=== PATIENT | female | born 1965 | race Caucasian/White ===

== ENCOUNTER → 2019-11-19 15:14 | Outpatient (CLI) | payer SELFPAY ==
--- NOTE | 2019-11-19 15:26 | BI_ITS ---
MAMMOGRAPHY - BILATERAL SCREENING REASON FOR EXAM: Female, 54 years old. Routine annual screening examination. PERTINENT HISTORY: Non-contributory. TECHNIQUE: Digital bilateral breast dominique (3D mammographic acquisition) in the CC and MLO projections. 2-D mediolateral oblique (MLO) and craniocaudad (CC) views of both breasts were obtained. CAD: Full Field Digital Mammography with Computer Added Detection was performed. COMPARISON: No comparison mammograms available at this time. If any prior films become available, an addendum to this report can be generated. FINDINGS: Breast Composition: The breasts are heterogeneously dense, which may obscure small masses. There are no dominant masses or suspicious calcifications. Small benign appearing bilateral axillary nodes. No other significant abnormalities are identified. BI/SCREEN MAMM (CAD) W/DOMINIQUE BILAT IMPRESSION: Negative screening mammogram. Yearly followup mammogram recommended. (A) ASSESSMENT CATEGORY: BIRADS Category 2: Benign. A letter regarding these results will be sent to the patient by the facility within 30 days. Approximately 10% of breast cancers are not detected by mammography. A normal mammogram should not delay biopsy of a clinically suspicious abnormality. [id number] Electronically Signed: Bird Wong, at 12:48 EDT , Service support ,
== END ==
PROVIDERS: PCP Physician Assistant; Referring Provider Physician Assistant; Visit Provider Physician Assistant
DX: Z12.31 Encounter for screening mammogram for malignant neoplasm of breast (principal)
CPT/HCPCS: 77063; 77067

== ENCOUNTER → 2023-08-14 | Outpatient (CLI) | payer SELFPAY ==
--- NOTE | 2023-08-14 10:23 | RAD_ITS ---
STUDY: X-RAY - PELVIS REASON FOR EXAM: Female, 58 years old. Pain. TECHNIQUE: One view of the pelvis was obtained. COMPARISON: None. FINDINGS: Normal bowel gas pattern with air seen to the rectosigmoid. Phleboliths Normal bilateral iliac wings, sacroiliac joints and visualized sacrum. Normal visualized bilateral superior and inferior pubic rami. Normal pubic symphysis. Normal ischial tuberosities. Normal visualized right femoral head. Normal right acetabulum. Normal right hip joint. Normal visualized left femoral head. Normal left acetabulum. Normal left hip joint. RAD/Pelvis 1 or 2 Views IMPRESSION: No abnormality identified. Electronically Signed: Igor Neff MD at 11:00 EDT ,
[2023-08-14 12:10] LABS: Absolute Lymphocyte Count 1.68 X10^3/uL (0.83-4.51); Absolute Neutrophil Count 4.7 X10^3/uL (2.0-7.7); Basophil# 0.02 X10^3/uL; Basophil% 0.3 % (0-1); Eosinophil# 0.13 X10^3/uL; Eosinophils% 1.8 % (0-5); Hemoglobin 13.7 g/dL (12.0-15.0); Lymphocyte # 1.68 X10^3/ul (0.83-4.51); Lymphocyte % 23.9 % (19-41); Mean Corp Hgb Conc 32.6 g/dL (32-36); Mean Corpuscular Hgb 29.7 pg (27.0-32.0); Mean Corpuscular Volume 91.1 fL (81-99); Mean Platelet Vol. 10.2 fl (6.2-12.0); Monocyte# 0.48 X10^3/uL; Monocyte% 6.8 % (0-10); NRBC Flagged by Analyzer 0 % (0-5); Neutrophil % 66.8 % (47-70); Platelet Count 281 K/mm3 (150-450); RBC Distribution Width CV 14.1 % (11.6-14.6); RBC Distribution Width SD 45.9 fl (35.1-43.9); Red Blood Count 4.61 M/mm3 (4.2-5.4)
[2023-08-14 12:17] LABS: Erythrocyte Sedimentation Rate 12 mm/hr (0-30)
[2023-08-14 12:34] LABS: AST(SGOT) 19 U/L (15-37); Alanine Aminotransfer ALT/SGPT 26 U/L (13-56); Albumin, Serum 3.9 g/dL (3.2-5.0); Alkaline Phosphatase 97 U/L (45-117); Anion Gap 10 (5-15); BUN 20 mg/dL (7-18); BUN/Creat Ratio 19.2 RATIO (10-20); CRP < 2.90 mg/L (0.0-3.0); Calcium,Total 9.2 mg/dL (8.5-10.1); Chloride 106 mmol/L (98-107); Creatinine, Serum 1.04 mg/dL (0.55-1.02); EST Glomerular Filtration Rate 58 mL/min (>60); Est Glom Filt Rate - Afr Amer 70 mL/min (>60); Glucose 104 mg/dL (74-106); Potassium 3.4 mmol/L (3.5-5.1); Protein, Total 7.9 g/dL (6.4-8.2); Rheumatoid Factor < 10.0 IU/mL (<15); Sodium Level 139 mmol/L (136-145)
[2023-08-15 15:09] LABS: CCP IgG Antibodies 11 units (0-19)
[2023-08-15 16:10] LABS: ANTINUCLEAR ANTIBODIES DIRECT Negative (Negative)
[2023-08-16 16:14] LABS: Hepatitis B Surface Antibody Non-Reactive; Hepatitis B Surface Antigen Non-Reactive (Nonreactive); Hepatitis C Antibody Non-Reactive (Nonreactive)
== END | disposition home or self-care (01) ==
PROVIDERS: PCP Physician Assistant; Referring Provider Internal Medicine Rheumatology; Visit Provider Internal Medicine Rheumatology
DX: L40.59 Other psoriatic arthropathy (principal); Z79.899 Other long term (current) drug therapy; L40.8 Other psoriasis
CPT/HCPCS: 36415; 72170; 80053; 85025; 85652; 86038; 86140; 86200; 86431; 86706; 86803; 87340

== ENCOUNTER → 2024-06-25 | Outpatient (CLI) | payer SELFPAY ==
[2024-06-25 15:29] LABS: Absolute Lymphocyte Count 1.88 X10^3/uL (0.83-4.51); Absolute Neutrophil Count 4.4 X10^3/uL (2.0-7.7); Basophil# 0.02 X10^3/uL; Basophil% 0.3 % (0-1); Eosinophil# 0.11 X10^3/uL; Eosinophils% 1.6 % (0-5); Hematocrit 39.3 % (37-47); Lymphocyte # 1.88 X10^3/ul (0.83-4.51); Lymphocyte % 26.9 % (19-41); Mean Corp Hgb Conc 33.1 g/dL (32-36); Mean Corpuscular Hgb 29.7 pg (27.0-32.0); Mean Corpuscular Volume 89.7 fL (81-99); Mean Platelet Vol. 10.1 fl (6.2-12.0); Monocyte% 8.6 % (0-10); NRBC Flagged by Analyzer 0 % (0-5); Neutrophil # 4.37 X10^3/uL (2.7-7.7); Neutrophil % 62.3 % (47-70); Platelet Count 281 K/mm3 (150-450); RBC Distribution Width CV 13.5 % (11.6-14.6); RBC Distribution Width SD 43.9 fl (35.1-43.9); Red Blood Count 4.38 M/mm3 (4.2-5.4)
[2024-06-25 16:50] LABS: ALB/GLOB Ratio 1.4 RATIO (0.9-2.4); AST(SGOT) 26 U/L (<=31); Alanine Aminotransfer ALT/SGPT 34 U/L (<=34); Albumin, Serum 4.3 g/dL (3.5-5.0); Alkaline Phosphatase 92 U/L (35-104); Anion Gap 12 (5-15); BUN 17 mg/dL (4-19); BUN/Creat Ratio 17.7 RATIO (10-20); Calcium,Total 9.7 mg/dL (7.6-11.0); Chloride 105 mmol/L (98-108); Creatinine, Serum 0.98 mg/dL (0.70-1.20); EST Glomerular Filtration Rate 67 (>60); Globulin 3.1 g/dL (2.2-4.2); Glucose 91 mg/dL (70-99); Potassium 3.8 mmol/L (3.3-5.1); Protein, Total 7.4 g/dL (5.9-8.4); Sodium Level 137 mmol/L (133-145); Total Bilirubin 0.34 mg/dL (0.00-1.30)
== END | disposition home or self-care (01) ==
LOC: MTLAB 13:06
PROVIDERS: PCP Physician Assistant; Referring Provider Internal Medicine Rheumatology; Visit Provider Internal Medicine Rheumatology
DX: L40.59 Other psoriatic arthropathy (principal); L40.8 Other psoriasis; Z79.899 Other long term (current) drug therapy
CPT/HCPCS: 36415; 80053; 85025

== ENCOUNTER → 2024-09-24 | Outpatient (CLI) | payer SELFPAY ==
--- NOTE | 2024-09-24 09:36 | US_ITS ---
PROCEDURE: LIVER 09/24/2024 REASON FOR EXAM: [employer] DRUG TX/OTHER PSORIATIC ARTHROPATHY/ELEVATED LI ENZYMES COMPARISON: None FINDINGS: Liver: Diffusely echogenic suggesting fatty infiltration. The liver measures 16.7 cm. Gallbladder: No stones sludge wall thickening or tenderness. Common bile duct: Normal measuring 2.7 mm . Pancreas: Normal Other: Visualized portions of the right kidney are unremarkable. 2 small cysts are seen. The largest cyst measures 1.3 cm 1.4 cm 1 cm. This is in the superior pole. No right upper quadrant ascites. US/Liver IMPRESSION: Fatty infiltration of the liver. Right renal cysts. Reading Location: [facility]
--- OUTSIDE RECORDS SUMMARY | 2024-09-24 11:18 | XMS RPT_ITS | CCD ---
Author Organization [facility] Care Team Providers Care Director Of Athletics Name Role Phone NONE, XXXX Primary Care Physician Unavailab Derrick Andrade Attending Unavailable Derrick Hudson Admitting Unavailable NONE, XXXX Referring Unavailable Basil Gibson Primary Care Provider Basil Gibson Primary Care Provider IRVING VALDEZ JR. Attending Unavaila BASIL Carias Primary Care Unavailable SELF, SELF Referring Unavailable SELF, SELF Referring Unavailable IRVING VALDEZ JR. Attending Unavaila BASIL Carias Primary Care Unavailable IRVING VALDEZ JR. Attending Unavaila BASIL Carias Primary Care Unavailable SELF, SELF Referring Unavailable IRVING VALDEZ JR. Attending Unavaila BASIL Carias Primary Care Unavailable SELF, SELF Referring Unavailable BRITTNEY VILLA Referring Unavailable BASIL CALDERÓN Primary Care Unavaila SHAMA Perry Attending Unavaila pebbles Calderón PA-C, Basil Nazario Primary Care Provid er JOHNNIE JOHNS Referring BRITTNEY Shin Referring Unavailable Cyndy BECK, Dr. Vicente Primary Care Provider [phone] Dr. Belén Almaraz MD Attending Provider Dr. Belén Almaraz MD Referring Provider SHAMA MCCANN Referring Unavaila BASIL Carias Primary Care Unavaila FAB Underwood Attending Unavaila SHAMA Perry Admitting Unavaila BASIL Carias Primary Care Unavaila ble LUANN JOSHI Attending Unavailable FAB GARCIA Admitting Unavaila FAB Underwood Referring Unavaila BASIL Carias [facility] Care Unavaila KIA Odonnell Attending Unavailable LUANN JOSHI Referring Unavailable BASIL CALDERÓN [facility] Unavaila LUANN Pederson Attending Unavailable BASIL CALDERÓN [facility] Unavaila LUANN Pederson Attending Unavailable BASIL CALDERÓN [facility] Unavaila LUANN Pederson Attending Unavailable Basil Calderón Primary Care Unavailable Vellanki, Belén Referring Unavailable Vellanki, Belén Attending Unavailable Vellauren, Belén Attending Unavailable Basil Calderón Primary Care Unavailable Vellanki, Belén Referring Unavailable Allergies Allergy Classification Reported Allergen(s) Allergy Type Date of Onset Reaction(s) Facility (1 source) Sulfonamides (Antibiotic); Translations: [sulfa drugs] Drug allergy Pain (finding) [facility] (3 sources) Sulfonamides (Antibiotic) Propensity to adverse reactions to drug 2 [facility] (6 sources) Sulfonamides (Antibiotic); Translations: [SULFA (SULFONAMIDE ANTIBIOTICS)] Propensity to adverse reactions to drug (disorder) 4 GI Intolerance [facility] Repository Medications Current Medications Medication Drug Class(es) Dates Sig (Normalized) Sig (Original) biotin 1 mg oral tablet (3 sources) biotin 1 mg tabl et Take 1,000 mcg by mouth 2 (two) times a day . 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 11/28/2021 Active leucovorin 15 mg oral tablet (4 sources) Folate Analog Start: 4 take 1 tablet by mouth every week leucovorin (WELLCOVORIN) 15 MG tablet Take 1 (one) tablet (15 mg total) by mouth once a week . 01/07/2024 Active lisinopril 20 mg oral tablet (4 sources) Angiotensin Converting Enzyme Inhibitor Start: 4 take 1 tablet by mouth once daily lisinopriL (PRINIVIL,ZESTRIL) 20 MG tablet Take 1 (one) tablet (20 mg total) by mouth daily . 11/04/2023 Active megestrol acetate 40 mg oral tablet (8 sources) Progestin Start: End: 5 take 1 tablet by mouth twice daily megestroL (MEGACE) 40 MG tablet Take 1 (one) tablet (40 mg total) by mouth 2 (two) times a day . 02/13/2023 Active Start: 11-03-2021 take 2 tablets by mo uth once daily megestrol 40 MG tablet Take 2 tablets by mouth daily. 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 , Methotrexate, exterminator, current use , 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 cancer , History of psoriatic arthritis , Family history of psoriatic arthritis , Family history of psoriasis , Hyperchloremia 7 po one day a week 28 tablet 5 05/14/2023 Active Start: 11-13-2022 End: 05-14-2023 take 6 tablets by mouth once for arthritis methotrexate 2.5 MG tablet Indications: Psoriatic arthritis , Abnormal renal function test , Encounter for monitoring of etanercept therapy , Family history of psoriasis , Family history of psoriatic arthritis , History of psoriatic arthritis , 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 cancer , 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 non-steroidal anti-inflammatories (NSAID) , Methotrexate, exterminator, current use , 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 , Primary osteoarthritis of both hands 6 po one day a week 24 tablet 5 11/13/2022 05/14/2023 Discontinued Start: 07-26-2022 End: 11-13-2022 take 3 tablets by mouth once methotrexate 2.5 MG table t Indications: Psoriatic arthritis , Abnormal renal function test , Family history of psoriasis , Family history of psoriatic arthritis , History of psoriatic arthritis , 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 cancer , 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) , Methotrexate, detention, current use , Hyperglycemia , 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 , Primary osteoarthritis of both hands 3 po one day a week 36 tablet 3 07/26/2022 11/13/2022 Discontinued Start: 12-21-2021 End: 05-15-2022 take 3 tablets by mouth once methotrexate 2.5 MG table t Indications: Psoriatic arthritis , Abnormal renal function test , Family history of psoriasis , Family history of psoriatic arthritis , History of psoriatic arthritis , 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 cancer , 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) , Methotrexate, detention, current use , Hyperglycemia , 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 , Methotrexate, detention, current use , 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 cancer , History of psoriatic arthritis , Family history of psoriatic arthritis , Family history of psoriasis , Hyperchloremia One shot day 1 then 4 weeks later than every 12 weeks thereafter 1 mL 11 05/14/2023 Active Start: 05-14-2023 End: 05-14-2023 Risankizumab-rzaa (Skyrizi P en) 150 MG/ML Solution Auto- injector Indications: Psoriatic arthritis , Primary osteoarthritis of both hands , 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 , Methotrexate, detention, current use , 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 cancer , History of psoriatic arthritis , Family history of psoriatic arthritis , Family history of psoriasis , Hyperchloremia One shot day 1 then 4 weeks later than every 12 weeks thereafter 1 mL 11 05/14/2023 05/14/2023 Discontinued Completed/Discontinued Medications Medication Drug Class(es) Dates Sig (Normalized) Sig (Original) 1 ml etanercept 50 mg/ml cartridge (3 sources) Tumor Necrosis Factor Xochilt Start: 11-13-2022 End: 05-14-2023 Etanercept (Enbrel Mini) 50 MG/ML Solution Cartridge Indications: Psoriatic arthritis , Abnormal renal function test , Encounter for monitoring of etanercept therapy , Family history of psoriasis , Family history of psoriatic arthritis , History of psoriatic arthritis , 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 cancer , 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 non-steroidal anti-inflammatories (NSAID) , Methotrexate, detention, current use , 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 , Primary osteoarthritis of both hands One shot one day a week 4 mL 11 11/13/2022 05/14/2023 Discontinued meloxicam 7.5 mg oral tablet (4 sources) Nonsteroidal Anti-inflammatory Drug Start: 05-15-2022 End: 05-14-2023 take 1 tablet by mouth once daily as needed Meloxicam 7.5 MG tablet Indications: Psoriatic arthritis , Abnormal renal function test , Family history of psoriasis , Family history of psoriatic arthritis , History of psoriatic arthritis , 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 cancer , 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 non-steroidal anti-inflammatories (NSAID) , Methotrexate, detention, current use , Hyperglycemia , 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 , Primary osteoarthritis of both hands 1 po q day PRN 90 tablet 3 05/15/2022 05/14/2023 Discontinued Start: 05-03-2022 End: 05-15-2022 take 1 tablet by mouth every other day as needed Meloxicam 15 MG tablet Indications: Psoriatic arthritis 1 po every other day PRN 15 tablet 11 05/03/2022 05/15/2022 Discontinued Problems Active Problems Problem Classification Problem Date Documented Date Episodic/Chronic Cancer of uterus (8 sources) H/O: malignant neoplasm; Translations: [Personal history of malignant neoplasm of other parts of uterus] Onset: 12-21-2021 Episodic Essential hypertension (4 sources) Hypertensive disorder; Translations: [Essential (primary) hypertension] Onset: 12-21-2021 11-23-2021 Chronic Fluid and electrolyte disorders (4 sources) Other disorders of electrolyte and fluid balance, not elsewhere classified; Translations: [Hyperchloremia] Onset: 05-14-2023 Episodic Osteoarthritis (10 sources) Osteoarthritis of joint of bilateral hands; Translations: [Primary osteoarthritis, right hand] Onset: 12-21-2021 Chronic Other aftercare (6 sources) shelter methotrexate user; Translations: [Methotrexate, detention, current use] Onset: 12-21-2021 Episodic Other aftercare (1 source) Other detention (current) drug therapy; Translations: [Other detention (current) drug therapy] Onset: 09-19-2024 Episodic Other ear and sense organ disorders (2 sources) Abnormal auditory perception; Translations: [Other abnormal auditory perceptions, right ear] 05-12-2024 Episodic Other inflammatory condition of skin (6 sources) Psoriatic arthritis; Translations: [Arthropathic psoriasis, unspecified] Onset: 12-21-2021 Chronic Other inflammatory condition of skin (2 sources) Arthropathic psoriasis, unspecified; Translations: [Arthropathic psoriasis, unspecified] Onset: 12-21-2021 Chronic Other inflammatory condition of skin (2 sources) Other psoriatic arthropathy; Translations: [Other psoriatic arthropathy] Onset: 07-01-2024 Chronic Other nutritional; endocrine; and metabolic disorders (3 sources) Obese class II; Translations: [Obesity, unspecified] Onset: 12-21-2021 12-21-2021 Chronic Other skin disorders (6 sources) H/O: arthritis; Translations: [Personal history of diseases of the skin and subcutaneous tissue] Onset: 12-21-2021 Episodic Residual codes; unclassified (6 sources) FH: Psoriasis; Translations: [Family history of diseases of the skin and subcutaneous tissue] Onset: 12-21-2021 Episodic Residual codes; unclassified (6 sources) Family history of psoriasis with arthropathy; Translations: [Family history of diseases of the skin and subcutaneous tissue] Onset: 12-21-2021 Episodic Spondylosis; intervertebral disc disorders; other back problems (8 sources) Dactylitis; Translations: [Unspecified inflammatory spondylopathy, site unspecified] Onset: 12-21-2021 Chronic Unclassified (1 source) shelter (current) use of immunosuppressive biologic; Translations: [shelter (current) use of immunosuppressive biologic] Onset: 11-13-2022 Unclassified (1 source) lobsterman (current) use of antimetabolite agent; Translations: [shelter (current) use of antimetabolite agent] Onset: 12-21-2021 Past or Other Problems Problem Classification Problem Date Documented Date Episodic/Chronic Conditions associated with dizziness or vertigo (20 sources) Benign paroxysmal vertigo, unspecified ear; Translations: [Peripheral vertigo] Onset: 4 Episodic Diabetes mellitus without complication (6 sources) Hyperglycemia; Translations: [Hyperglycemia, unspecified] Onset: 3 Resolved: 4 Episodic Malaise and fatigue (3 sources) Fatigue; Translations: [Other fatigue] Onset: 2 12-21-2021 Episodic Other aftercare (8 sources) Patient encounter status; Translations: [shelter (current) use of non-steroidal anti-inflammatories (NSAID)] Onset: 2 Resolved: 4 Episodic Other aftercare (3 sources) Long-term current use of systemic steroid; Translations: [lobsterman (current) use of systemic steroids] Onset: 2 Resolved: 2 12-21-2021 Episodic Other aftercare (2 sources) Encounter for therapeutic drug level monitoring; Translations: [Encounter for therapeutic drug level monitoring] Onset: 3 Episodic Other aftercare (2 sources) shelter (current) use of non-steroidal anti-inflammatories (NSAID); Translations: [lobsterman (current) use of non-steroidal anti-inflammatories (nsaid)] Onset: 2 Episodic Other bone disease and musculoskeletal deformities (3 sources) Disorder of skeletal system; Translations: [Disorder of bone, unspecified] Onset: 2 12-21-2021 Episodic Other connective tissue disease (3 sources) Pain of bilateral hands; Translations: [Pain in right hand] Onset: 2 12-21-2021 Episodic Other ear and sense organ disorders (2 sources) Other abnormal auditory perceptions, right ear; Translations: [Other abnormal auditory perceptions, right ear] Onset: 5 Episodic Other non-traumatic joint disorders (3 sources) Bilateral wrist pain; Translations: [Pain in right wrist] Onset: 2 12-21-2021 Episodic Other screening for suspected conditions (not mental disorders or infectious disease) (7 sources) Renal function tests abnormal; Translations: [Abnormal results of kidney function studies] Onset: 3 Resolved: 4 Episodic Other skin disorders (2 sources) Personal history of diseases of the skin and subcutaneous tissue; Translations: [Personal history of diseases of the skin and subcutaneous tissue] Onset: 2 Episodic Residual codes; unclassified (2 sources) Family history of diseases of the skin and subcutaneous tissue; Translations: [Family history of diseases of the skin and subcutaneous tissue] Onset: 2 Episodic Unclassified (1 source) lobsterman (current) use of immunosuppressive biologic; Translations: [shelter (current) use of immunosuppressive biologic] Onset: 3 Unclassified (1 source) lobsterman (current) use of antimetabolite agent; Translations: [lobsterman (current) use of antimetabolite agent] Onset: 3 Results Test Name Value Interpretation Reference Range Facility CT ABDOMEN PELVIS W IV CONTR [place] 06-27-2024 CT ABDOMEN PELVIS W IV CONTRAST HISTORY: History of endometrial sarcoma. Positive lymphovascular space invasion. History of hysterectomy. TECHNIQUE: CT of the abdomen and pelvis was performed using standard technique with intravenous contrast, scanning from just above the dome of the diaphragm to the symphysis pubis. Including delayed images through the kidneys. Including sagittal and coronal reconstructions on both phases. All CT scans at this facility use dose modulation, iterative reconstruction, and/or weight based dosing when appropriate to reduce radiation dose to as low as reasonably achievable. COMPARISON: CTs 05/17/2023. RESULT: Liver: Diffuse hepatic steatosis. No suspicious mass or lesion. Biliary: Gallbladder unremarkable. No biliary ductal dilation. Pancreas: No mass or duct dilation. Spleen: No mass or splenomegaly. Adrenals: No mass. Kidneys: No mass, calculus or hydronephrosis. Delayed phase imaging unremarkable. GI tract: No dilation or wall thickening. Appendix unremarkable. Diverticulosis without diverticulitis. Lymph nodes: No abdominal or pelvic lymphadenopathy. Mesentery/Peritoneu m/Retroperitoneum: No ascites or mass. Vasculature: The celiac axis and SMA are patent. The portal vein and branches, splenic vein, SMV, and hepatic veins are patent. No abdominal aortic or iliac artery aneurysm. Pelvis: Hysterectomy. Hysterectomy surgical bed grossly unchanged from prior. No significant free fluid. Bladder unremarkable. Bones: No acute osseous findings. No destructive osseous lesions. Soft tissues: Diastases, unchanged. Lower thorax: A chest CT performed will be reported separately. IMPRESSION: No acute process in the abdomen/pelvis. No significant interval change from prior. ELECTRONICALLY SIGNED BY: Aleks Damon MD Normal Not Available CT CHEST W IV CONTRASTon CT CHEST W IV CONTRAST EXAMINATION: CT CHEST W IV CONTRAST HISTORY: History of endometrial cancer. TECHNIQUE: Spiral CT acquisition of the chest from the thoracic inlet to the upper abdomen with contrast. Dedicated sagittal and coronal reconstructions. All CT scans at this facility use dose modulation, iterative reconstruction, and/or weight based dosing when appropriate to reduce radiation dose to as low as reasonably achievable. COMPARISON: 05/17/2023. RESULT: Lung parenchyma and pleura: Some limitations from motion. Central airways grossly patent. Dependent atelectasis. No consolidative opacity. No pleural effusion. No pneumothorax. No suspicious lung nodules. Thoracic inlet, heart, and mediastinum: Thyroid cysts and/or nodules, grossly unchanged, not requiring follow-up per size criteria. No axillary, mediastinal, or hilar lymphadenopathy. Normal thoracic aorta. Normal pulmonary size artery. Normal heart size. No coronary artery calcifications. No pericardial effusion or thickening. Esophagus nondilated. Bones: No acute osseous findings. No destructive osseous lesions. Soft tissues: Unremarkable. Upper abdomen: Refer to concurrent CT. IMPRESSION: No evidence for metastatic disease to the thorax. ELECTRONICALLY SIGNED BY: Aleks Damon MD Normal Not Available Absolute lymphocyte countOrd ered By: Belén Almaraz on 06-25-2024 Lymphocytes Auto (Unsp spec) [#/Vol] 1.88 10*3/uL 0.83-4.51 [facility] Absolute neutrophil countOrd ered By: Belén Almaraz on 06-25-2024 Neutrophils (Bld) [#/Vol] 4.4 10*3/uL 2.0-7.7 [facility] Anion gap in Serum or Plasma Ordered By: Belén Almaraz on 06-25-2024 Anion gap [Moles/Vol] 12 mmol/L 5-15 [facility] Automated lymphocyte count a s percentage of total leukocytesOrdered By: Belén Almaraz on 06-25-2024 Lymphocytes/100 WBC Auto (Unsp spec) 26.9 % 19-41 [facility] BUN/creatinine ratioOrdered By: Belénsaumya Almaraz on 06-25-2024 Urea nitrogen/Creatinine [Mass ratio] 17.7 mg/mg 10-20 [facility] Basophil percentageOrdered B y: Belén Almaraz on 06-25-2024 Basophils/100 WBC (Bld) 0.3 % 0-[address] [facility] Bilirubin, totalOrdered By: Belén Almaraz on 06-25-2024 Bilirubin [Mass/Vol] 0.34 mg/dL 0.00-1.30 [facility] CBC W/Diff, Automatedon 06-12 Absolute Lymph 1.88 X10 3/uL Normal 0.83-4.51 [facility] Comment on above: Performed By: #### L [id number], L100.0100 #### [facility] [address] [place], [address] Absolute Neut 4.4 X10 3/uL Normal 2.0-7.7 [facility] Comment on above: Performed By: #### L [id number], L100.0100 #### [facility] [address] [place], [address] Basophils/100 WBC (Bld) 0.3 % Normal 0-[address] [facility] Comment on above: Performed By: #### L [id number], L100.0100 #### [facility] [address] [place], [address] Eosinophils/100 WBC (Bld) 1.6 % Normal 0-5 [facility] Comment on above: Performed By: #### L [id number], L100.0100 #### [facility] [address] [place], [address] Erythrocyte distribution width (RBC) [Ratio] 13.5 % Normal 11.6-14.6 [facility] Comment on above: Performed By: #### L [id number], L100.0100 #### [facility] [address] [place], [address] Hematocrit (Bld) [Volume fraction] 39.3 % Normal 37-47 [facility] Comment on above: Performed By: #### L [id number], L100.0100 #### [facility] [address] [place], [address] Hemoglobin (Bld) [Mass/Vol] 13.0 g/dL Normal 12.0-15.0 [facility] Comment on above: Performed By: #### L [id number], L100.0100 #### [facility] [address] [place], [address] IG% 0.300 Normal 0.0-0.9 [facility] Comment on above: Result Comment: IG% - Immature Granulocytes (promyelocytes, myelocytes and metamyelocytes) > 1% indicates that a LEFT SHIFT is Present. Performed By: #### L [id number], L100.0100 #### [facility] [address] [place], [address] Lymphocytes/100 WBC (Bld) 26.9 % Normal 19-41 [facility] Comment on above: Performed By: #### L 500.4050, L100.0100 #### [facility] [address] [place], [address] MCH (RBC) [Entitic mass] 29.7 pg Normal 27.0-32.0 [facility] Comment on above: Performed By: #### L [id number], L100.0100 #### [facility] [address] [place], [address] MCHC (RBC) [Mass/Vol] 33.1 g/dL Normal 32-36 [facility] Comment on above: Performed By: #### L [id number], L100.0100 #### [facility] [address] [place], [address] MCV (RBC) [Entitic vol] 89.7 fL Normal 81-[address] [facility] Comment on above: Performed By: #### L [id number], L100.0100 #### [facility] [address] [place], [address] Monocytes/100 WBC (Bld) 8.6 % Normal 0-10 [facility] Comment on above: Performed By: #### L [id number], L100.0100 #### [facility] [address] [place], [address] Neutrophils/100 WBC (Bld) 62.3 % Normal 47-70 [facility] Comment on above: Performed By: #### L [id number], L100.0100 #### [facility] [address] [place], [address] Nucleated RBC (Bld) [#/Vol] 0 10*3/uL Normal 0-5 [facility] Comment on above: Performed By: #### L [id number], L100.0100 #### [facility] [address] [place], [address] Platelet mean volume (Bld) [Entitic vol] 10.1 fL Normal 6.2-12.0 [facility] Comment on above: Performed By: #### L 500.4050, L100.0100 #### [facility] [address] [place], [address] Platelets (Bld) [#/Vol] 281 10*3/uL Normal 150-450 [facility] Comment on above: Performed By: #### L 500.4050, L100.0100 #### [facility] [address] [place], [address] RBC (Bld) [#/Vol] 4.38 10*6/uL Normal 4.2-5.4 [facility] Comment on above: Performed By: #### L [id number], L100.0100 #### [facility] [address] [place], [address] RDW SD 43.9 fl Normal 35.1-43.9 [facility] Comment on above: Performed By: #### L 500.4050, L100.0100 #### [facility] [address] [place], [address] WBC (Bld) [#/Vol] 7.0 10*3/uL Normal 4.4-11.0 [facility] Comment on above: Performed By: #### L 500.4050, L100.0100 #### [facility] [address] [place], [address] Carbon dioxide, total [Moles /volume] in Central venous bloodOrdered By: Belén Almaraz on 06-25-2024 CO2 [Moles/Vol] 20.0 mmol/L Low 21.0-32.0 [facility] Chloride assayOrdered By: Abraham Almaraz on 06-25-2024 Chloride [Moles/Vol] 105 mmol/L 98-108 [facility] [facility] Comprehensive Metabolic Prof ilon 06-25-2024 Albumin [Mass/Vol] 4.3 g/dL Normal 3.5-5.0 [facility] Comment on above: Performed By: #### L 500.4050, L100.0100 #### [facility] [address] [place], [address] Albumin/Globulin [Mass ratio] 1.4 {ratio} Normal 0.9-2.4 [facility] Comment on above: Performed By: #### L 500.4050, L100.0100 #### [facility] [address] [place], [address] ALK PHOS 92 U/L Normal 35-104 [facility] Comment on above: Performed By: #### L 500.4050, L100.0100 #### [facility] [address] [place], [address] ALT [Catalytic activity/Vol] 34 U/L Normal <=34 [facility] Comment on above: Performed By: #### L 500.4050, L100.0100 #### [facility] [address] [place], [address] AST [Catalytic activity/Vol] 26 U/L Normal <=31 [facility] Comment on above: Performed By: #### L 500.4050, L100.0100 #### [facility] [address] [place], [address] Bilirubin [Mass/Vol] 0.34 mg/dL Normal 0.00-1.30 [facility] Comment on above: Performed By: #### L 500.4050, L100.0100 #### [facility] [address] [place], [address] BUN/CRE 17.7 RATIO Normal 10-20 [facility] Comment on above: Performed By: #### L 500.4050, L100.0100 #### [facility] [address] [place], [address] Calcium [Mass/Vol] 9.7 mg/dL Normal 7.6-11.0 [facility] Comment on above: Performed By: #### L 500.4050, L100.0100 #### [facility] [address] [place], [address] Chloride [Moles/Vol] 105 mmol/L Normal 98-108 [facility] Comment on above: Performed By: #### L 500.4050, L100.0100 #### [facility] [address] [place], [address] CO2 [Moles/Vol] 20.0 mmol/L Low 21.0-32.0 [facility] Comment on above: Performed By: #### L 500.4050, L100.0100 #### [facility] [address] [place], [address] Creatinine [Mass/Vol] 0.98 mg/dL Normal 0.70-1.20 [facility] Comment on above: Performed By: #### L 500.4050, L100.0100 #### [facility] [address] [place], [address] GAP 12 Normal 5-15 [facility] Comment on above: Performed By: #### L 500.4050, L100.0100 #### [facility] [address] [place], [address] GFR/1.73 sq M.predicted among non-blacks MDRD (S/P/Bld) [Vol rate/Area] 67 mL/min/{1.73_m2} Normal >60 [facility] Comment on above: Result Comment: mL/m in/1.73m2 CKD-EPI Creatinine Equation (2020) Performed By: #### L 500.4050, L100.0100 #### [facility] [address] [place], [address] Globulin (S) [Mass/Vol] 3.1 g/dL Normal 2.2-4.2 [facility] Comment on above: Performed By: #### L 500.4050, L100.0100 #### [facility] [address] [place], [address] Glucose [Mass/Vol] 91 mg/dL Normal 70-99 [facility] Comment on above: Performed By: #### L 500.4050, L100.0100 #### [facility] [address] [place], [address] Potassium [Moles/Vol] 3.8 mmol/L Normal 3.3-5.1 [facility] Comment on above: Performed By: #### L 500.4050, L100.0100 #### [facility] [address] [place], [address] Sodium [Moles/Vol] 137 mmol/L Normal 133-145 [facility] Comment on above: Performed By: #### L 500.4050, L100.0100 #### [facility] [address] [place], [address] T PROT 7.4 g/dL Normal 5.9-8.4 [facility] Comment on above: Performed By: #### L 500.4050, L100.0100 #### [facility] [address] [place], [address] Urea nitrogen [Mass/Vol] 17 mg/dL Normal 4-19 [facility] Comment on above: Performed By: #### L 500.4050, L100.0100 #### [facility] [address] [place], [address] Eosinophil percentageOrdered By: Belén Almaraz on 06-25-2024 Eosinophils/100 WBC (Bld) 1.6 % 0-5 [facility] Erythrocyte distribution wid th ratioOrdered By: Belén Almaraz on 06-25-2024 Erythrocyte distribution width (RBC) [Ratio] 13.5 % 11.6-14.6 [facility] Erythrocyte distribution wid th standard deviationOrdered By: Belén Almaraz on 06-25-2024 Erythrocyte distribution width (RBC) [Ratio] 43.9 fl 35.1-43.9 [facility] Glomerular filtration rate ( GFR) estimation/1.73 sq m using serum, plasma, or whole bOrdered By: Belén Almaraz on 06-25-2024 GFR/1.73 sq M.predicted among non-blacks MDRD (S/P/Bld) [Vol rate/Area] 67 mL/min/{1.73_m2} >60 [facility] Comment on above: mL/min/1.73m2 CKD-EP I Creatinine Equation (2020) Hematocrit Auto (Bld) [Volum e fraction]Ordered By: Belén Almaraz on 06-25-2024 Hematocrit (Bld) [Volume fraction] 39.3 % 37-47 [facility] Hemoglobin measurementOrdere d By: Belén Almaraz on 06-25-2024 Hemoglobin (Bld) [Mass/Vol] 13.0 g/dL 12.0-15.0 [facility] Immature granulocytes/100 WB C Auto (Bld)Ordered By: Belén Almaraz on 06-25-2024 Immature granulocytes/100 WBC (Bld) 0.300 % 0.0-0.9 [facility] Comment on above: IG% - Immature Granu locytes (promyelocytes, myelocytes and metamyelocytes) > 1% indicates that a LEFT SHIFT is Present. Laboratory - Chemistry and C hemistry - challengeOrdered By: Belén Almaraz on 06-25-2024 AST [Catalytic activity/Vol] 26 U/L <32 [facility] MCV (mean corpuscular volume ) determinationOrdered By: Belén Almaraz on 06-25-2024 MCV (RBC) [Entitic vol] 89.7 fL 81-[address] [facility] Mean corpuscular hemoglobin (MCH) determinationOrdered By: Belén Almaraz on 06-25-2024 MCH (RBC) [Entitic mass] 29.7 pg 27.0-32.0 [facility] Mean corpuscular hemoglobin concentration (MCHC) determinationOrdered By: Belén Almaraz on 06-25-2024 MCHC (RBC) [Mass/Vol] 33.1 g/dL 32-36 [facility] Mean platelet volume determi nationOrdered By: Belén Almaraz on 06-25-2024 Platelet mean volume (Bld) [Entitic vol] 10.1 fL 6.2-12.0 [facility] Monocyte percentageOrdered B y: Belén Almaraz on 06-25-2024 Monocytes/100 WBC (Bld) 8.6 % 0-[address] [facility] Neutrophil percentageOrdered By: Belén Almaraz on 06-25-2024 Neutrophils/100 WBC (Bld) 62.3 % 47-70 [facility] Nucleated red blood cell per centageOrdered By: Belén Almaraz on 06-25-2024 Nucleated RBC/100 WBC (Bld) [Ratio] 0 % 0-5 [facility] Platelet countOrdered By: Abraham Almaraz on 06-25-2024 Platelets (Bld) [#/Vol] 281 10*3/uL 150-450 [facility] Potassium measurement (mass/ volume)Ordered By: Belén Almaraz on 06-25-2024 Potassium (Unsp spec) [Mass/Vol] 3.8 mmol/L 3.3-5.1 [facility] RBC Auto (Bld) [#/Vol]Ordere d By: Belén Almaraz on 06-25-2024 RBC (Bld) [#/Vol] 4.38 10*6/uL 4.2-5.4 [facility] Serum creatinine measurement (mass/volume)Ordered By: Belén Almaraz on 06-25-2024 Creatinine [Mass/Vol] 0.98 mg/dL 0.70-1.20 [facility] Serum globulin measurementOr dered By: Belén Almaraz on 06-25-2024 Globulin (S) [Mass/Vol] 3.1 g/dL 2.2-4.2 [facility] Serum glucose measurement (m ass/volume)Ordered By: Belén Almaraz on 06-25-2024 Glucose [Mass/Vol] 91 mg/dL 70-99 [facility] Serum or plasma alanine toussaint otransferase (ALT) measurementOrdered By: Belén Almaraz on 06-25-2024 ALT [Catalytic activity/Vol] 34 U/L <35 [facility] Serum or plasma albumin jayne urement (mass/volume)Ordered By: Belén Almaraz on 06-25-2024 Albumin [Mass/Vol] 4.3 g/dL 3.5-5.0 [facility] Serum or plasma albumin/glob ulin mass ratioOrdered By: Belén Almaraz on 06-25-2024 Albumin/Globulin [Mass ratio] 1.4 {ratio} 0.9-2.4 [facility] Serum or plasma alkaline rob sphatase measurementOrdered By: Belén Almaraz on 06-25-2024 ALP [Catalytic activity/Vol] 92 U/L 35-104 [facility] Serum or plasma calcium jayne urement (mass/volume)Ordered By: Belén Almaraz on 06-25-2024 Calcium [Mass/Vol] 9.7 mg/dL 7.6-11.0 [facility] Serum or plasma urea nitroge n measurement (mass/volume)Ordered By: Belén Almaraz on 06-25-2024 Urea nitrogen [Mass/Vol] 17 mg/dL 4-19 [facility] Sodium levelOrdered By: Antonio Almaraz on 06-25-2024 Sodium [Moles/Vol] 137 mmol/L 133-145 [facility] Total proteinOrdered By: Gene Almaraz on 06-25-2024 Protein [Mass/Vol] 7.4 g/dL 5.9-8.4 [facility] White blood cell (WBC) count Ordered By: Belén Almaraz on 06-25-2024 WBC (Bld) [#/Vol] 7.0 10*3/uL 4.4-11.0 [facility] MR BRAIN W AND WO CONTRAST ( ROUTINE)on 01-28-2024 MR BRAIN W AND WO CONTRAST (ROUTINE) TITLE OF EXAM: MR BRAIN W AND WO CONTRAST (ROUTINE) REASON FOR EXAM: Dizziness, vertigo, right sided head fullness sensation, aphasia for one month TECHNIQUE: Multisequence, multiplanar MRI of the brain prior to and following the intravenous administration of 10 cc [employer] COMPARISON: None. FINDINGS: Brain and intracranial structures: The ventricles, cisterns, and sulci are symmetric and normal in volume/caliber for age. Mild burden nonspecific supratentorial white matter T2 signal hyperintense lesions, most commonly a consequence of vascular risk factors. No abnormal parenchymal or meningeal enhancement. No mass lesion, hemorrhage, or acute infarct. Skull/scalp: Normal. Orbits and face (included portions): Normal. Paranasal sinuses and mastoid air cells (included portions): Subcentimeter mucous retention cyst or polyp along the posterior floor of the left maxillary sinus. IMPRESSION: No acute intracranial abnormality. No findings to explain the patient's reported dizziness, aphasia, and vertigo. DICTATED ON: 01/28/2024 1:14 PM This report has been electronically signed and approved by the interpreting radiologist. Normal Not Available APTTon 01-15-2024 aPTT Coag (Bld) [Time] 28 s Normal 23-34 [facility] Comment on above: Order Comment: Thera peutic range for APTT's is 68 - 104 seconds Performed By: #### 4 [id number] #### LAB [address] [place] [address] Otoniel Patel M.D. [id number] CBC WITH AUTO DIFFERENTIALon 01-15-2024 AUTO NRBC 0.0 % Normal [facility] Comment on above: Performed By: #### L [id number] #### LAB [address] [place] [address] tOoniel Patel M.D. [id number] AUTO NRBC ABS COUNT 0.00 K/mcL Normal 0.00-0.[address] [facility] Comment on above: Performed By: #### L [id number] #### LAB [address] [address] Otoniel Patel M.D. [id number] BASOPHILS ABSOLUTE COUNT 0.01 K/mcL Normal 0.00-0.30 [facility] Comment on above: Performed By: #### L [id number] #### LAB [address] [place] [address] Otoniel Patel M.D. [id number] Basophils/100 WBC (Bld) 0.1 % Normal [facility] Comment on above: Performed By: #### L [id number] #### LAB [address] [place] [address] Otoniel Patel M.D. [id number] Eosinophils (Bld) [#/Vol] 0.10 10*3/uL Normal 0.00-0.5 0 [facility] Comment on above: Performed By: #### L [id number] #### LAB [address] [address] Otoniel Patel M.D. [id number] Eosinophils/100 WBC (Bld) 1.1 % Normal [facility] Comment on above: Performed By: #### L [id number] #### LAB [address] [address] Otoniel Patel M.D. [id number] Erythrocyte distribution width (RBC) [Ratio] 13.9 % Normal 11.6-14.8 [facility] Comment on above: Performed By: #### L [id number] #### LAB [address] [address] Otoniel Patel M.D. [id number] Hematocrit (Bld) [Volume fraction] 41.6 % Normal 36.0-46.0 [facility] Comment on above: Performed By: #### L [id number] #### LAB [address] [place] [address] Otoniel Patel M.D. [id number] Hemoglobin (Bld) [Mass/Vol] 13.9 g/dL Normal 12.0-16.0 [facility] Comment on above: Performed By: #### L [id number] #### LAB [address] [address] Otoniel Patel M.D. [id number] IG ABSOLUTE 0.04 K/mcL Normal 0.00-0.30 [facility] Comment on above: Performed By: #### L [id number] #### LAB [address] [place] [address] Otoniel Patel M.D. [id number] IG PERCENT 0.40 % Normal [facility] Comment on above: Result Comment: The IG parameter is the percentage of metamyelocytes, myelocytes and promyelocytes. An immature granulocyte count (IG) of 1% or more suggests the possibility of infection, an IG count of 3% is very likely related to an infection. Performed By: #### L [id number] #### LAB [address] [place] [address] Otoniel Patel M.D. [id number] Lymphocytes (Bld) [#/Vol] 1.33 10*3/uL Normal 0.90-4.0 0 [facility] Comment on above: Performed By: #### L [id number] #### LAB [address] [address] Otoniel Patel M.D. [id number] Lymphocytes/100 WBC (Bld) 14.1 % Normal [facility] Comment on above: Performed By: #### L [id number] #### LAB [address] [address] Otoniel Patel M.D. [id number] MCH (RBC) [Entitic mass] 29.5 pg Normal 26.0-34.0 [facility] Comment on above: Performed By: #### L [id number] #### LAB [address] [address] Otoniel Patel M.D. [id number] MCV (RBC) [Entitic vol] 88.3 fL Normal 80.0-100.0 [facility] Comment on above: Performed By: #### L [id number] #### LAB [address] [address] Otoniel Patel M.D. [id number] MEAN CORPUSCULAR HEMOGLOBIN CONC 33.4 g/dL Normal 31.0-37.0 [facility] Comment on above: Performed By: #### L [id number] #### LAB [address] [address] Otoniel Patel M.D. [id number] Monocytes (Bld) [#/Vol] 0.65 10*3/uL Normal 0.30-0.90 [facility] Comment on above: Performed By: #### L [id number] #### LAB [address] [address] Otoniel Patel M.D. [id number] Monocytes/100 WBC (Bld) 6.9 % Normal [facility] Comment on above: Performed By: #### L [id number] #### LAB [address] [place] [address] Otoniel Patel M.D. [id number] NEUTROPHILS ABSOLUTE COUNT 7.31 K/mcL High 1.70-7.00 [facility] Comment on above: Performed By: #### L [id number] #### [facility] [address] [id number] Otoniel Patel M.D. [id number] Neutrophils/100 WBC (Bld) 77.4 % Normal [facility] Comment on above: Performed By: #### L [id number] #### [facility] [address] [address] Otoniel Patel M.D. [id number] Platelet mean volume (Bld) [Entitic vol] 9.8 fL Normal 9.4-12.4 [facility] Comment on above: Performed By: #### L [id number] #### [facility] [address] [address] Otoniel Patel M.D. [id number] Platelets (Bld) [#/Vol] 286 10*3/uL Normal 150-400 [facility] Comment on above: Performed By: #### L [id number] #### [facility] [address] [address] Otoniel Patel M.D. [id number] RBC (Bld) [#/Vol] 4.71 10*6/uL Normal 4.00-5.[address] [facility] Comment on above: Performed By: #### L [id number] #### [facility] [address] [address] Otoniel Patel M.D. [id number] WBC (Bld) [#/Vol] 9.44 10*3/uL Normal 4.50-11.[address] [facility] Comment on above: Performed By: #### L [id number] #### [facility] [address] [address] Otoniel Patel M.D. [id number] COMPREHENSIVE METABOLIC PANE [place] 01-15-2024 Albumin [Mass/Vol] 4.4 g/dL Normal 3.2-5.2 [facility] Comment on above: Order Comment: [facility] has implemented the eGFR calculation approach that does not have a coefficient for race that conforms to the NKF-ASN Task Force Recommendations. Performed By: #### 4 [id number] #### LAB [address] [address] Otoniel Patel M.D. [id number] ALP [Catalytic activity/Vol] 102 U/L Normal 40-150 [facility] Comment on above: Order Comment: [facility] has implemented the eGFR calculation approach that does not have a coefficient for race that conforms to the NKF-ASN Task Force Recommendations. Performed By: #### 4 [id number] #### LAB [address] [address] Otoniel Patel M.D. [id number] ALT [Catalytic activity/Vol] 20 U/L Normal 0-35 U/L [facility] Comment on above: Order Comment: [facility] has implemented the eGFR calculation approach that does not have a coefficient for race that conforms to the NKF-ASN Task Force Recommendations. Performed By: #### 4 [id number] #### LAB [address] [address] Otoniel Patel M.D. [id number] Anion gap [Moles/Vol] 15 mmol/L Normal 10-20 [facility] Comment on above: Order Comment: [facility] has implemented the eGFR calculation approach that does not have a coefficient for race that conforms to the NKF-ASN Task Force Recommendations. Performed By: #### 4 6126 #### LAB [address] [address] Otoniel aPtel M.D. [id number] AST [Catalytic activity/Vol] 20 U/L Normal 0-35 U/L [facility] Comment on above: Order Comment: [facility] has implemented the eGFR calculation approach that does not have a coefficient for race that conforms to the NKF-ASN Task Force Recommendations. Performed By: #### 4 6126 #### LAB [address] [address] Otoniel Patel M.D. [id number] Bilirubin [Mass/Vol] 0.2 mg/dL Normal 0.0-1.3 [facility] Comment on above: Order Comment: [facility] has implemented the eGFR calculation approach that does not have a coefficient for race that conforms to the NKF-ASN Task Force Recommendations. Performed By: #### 4 6126 #### LAB [address] [address] Otoniel Patel M.D. [id number] Calcium [Mass/Vol] 9.2 mg/dL Normal 8.4-10.2 [facility] Comment on above: Order Comment: [facility] has implemented the eGFR calculation approach that does not have a coefficient for race that conforms to the NKF-ASN Task Force Recommendations. Performed By: #### 4 6126 #### LAB [address] [address] Otoniel Patel M.D. [id number] Chloride [Moles/Vol] 105 mmol/L Normal 98-108 [facility] Comment on above: Order Comment: [facility] has implemented the eGFR calculation approach that does not have a coefficient for race that conforms to the NKF-ASN Task Force Recommendations. Performed By: #### 4 6126 #### LAB [address] [address] Otoniel Patel M.D. [id number] Creatinine [Mass/Vol] 1.06 mg/dL Normal 0.40-1.10 [facility] Comment on above: Order Comment: [facility] has implemented the eGFR calculation approach that does not have a coefficient for race that conforms to the NKF-ASN Task Force Recommendations. Performed By: #### 4 6126 #### LAB [address] [address] Otoniel Patel M.D. [id number] EGFR 61 mL/min/1.73 m2 Normal >=60 [facility] Comment on above: Order Comment: [facility] has implemented the eGFR calculation approach that does not have a coefficient for race that conforms to the NKF-ASN Task Force Recommendations. Result Comment: Rajni mated GFR was calculated using the 2020 CKD-EPI creatinine equation. Performed By: #### 4 6126 #### LAB [address] [address] Otoniel Patel M.D. [id number] Glucose [Mass/Vol] 187 mg/dL High 65-99 [facility] Comment on above: Order Comment: [facility] has implemented the eGFR calculation approach that does not have a coefficient for race that conforms to the NKF-ASN Task Force Recommendations. Performed By: #### 4 6126 #### LAB [address] [address] Otoniel Patel M.D. [id number] HCO3 (Bld) [Moles/Vol] 23 mmol/L Normal 21-32 [facility] Comment on above: Order Comment: [facility] has implemented the eGFR calculation approach that does not have a coefficient for race that conforms to the NKF-ASN Task Force Recommendations. Performed By: #### 4 6126 #### LAB [address] [address] Otoniel Patel M.D. [id number] Potassium [Moles/Vol] 3.9 mmol/L Normal 3.5-5.1 [facility] Comment on above: Order Comment: [facility] has implemented the eGFR calculation approach that does not have a coefficient for race that conforms to the NKF-ASN Task Force Recommendations. Performed By: #### 4 6126 #### LAB [address] [address] Otoniel Patel M.D. [id number] Protein [Mass/Vol] 7.8 g/dL Normal 6.0-8.0 [facility] Comment on above: Order Comment: [facility] has implemented the eGFR calculation approach that does not have a coefficient for race that conforms to the NKF-ASN Task Force Recommendations. Performed By: #### 4 6126 #### LAB [address] [address] Otoniel Patel M.D. [id number] Sodium [Moles/Vol] 139 mmol/L Normal 135-145 [facility] Comment on above: Order Comment: [facility] has implemented the eGFR calculation approach that does not have a coefficient for race that conforms to the NKF-ASN Task Force Recommendations. Performed By: #### 4 6126 #### LAB [address] [place], [place] [address] Otoniel Patel M.D. [id number] Urea nitrogen [Mass/Vol] 19 mg/dL Normal 8-25 [facility] Comment on above: Order Comment: [facility] has implemented the eGFR calculation approach that does not have a coefficient for race that conforms to the NKF-ASN Task Force Recommendations. Performed By: #### 4 6126 #### LAB [address] [address] Otoniel Patel M.D. [id number] Urea nitrogen/Creatinine [Mass ratio] 17.9 mg/mg Normal 10.0-20.0 [facility] Comment on above: Order Comment: [facility] has implemented the eGFR calculation approach that does not have a coefficient for race that conforms to the NKF-ASN Task Force Recommendations. Performed By: #### 4 6126 #### LAB [address] [address] Otoniel Patel M.D. [id number] CT CERVICAL SPINE WITHOUT CO NTRASTon 01-15-2024 CT CERVICAL SPINE WITHOUT CONTRAST EXAMINATION: CT CERVICAL SPINE WITHOUT CONTRAST HISTORY: ORDERING SYSTEM PROVIDED HISTORY: hit head four times 12 days ago, pain over left occipital region, TECHNOLOGIST PROVIDED HISTORY: Injury/Trauma Reason for exam: hit head four times 12 days ago, pain over left occipital region Encounter Type: Initial Mechanism of injury: n/a ORDERING SYSTEM PROVIDED DIAGNOSIS CODES: COMPARISON: None TECHNIQUE: CT cervical spine without contrast. Multiplanar reformats. Dose reduction techniques were achieved by using automated exposure control and/or adjustment of mA and/or kV according to patient size and/or use of iterative reconstruction technique. FINDINGS: There are mild degenerative changes of the cervical spine. The predental space and prevertebral soft tissues are within normal limits. The heights of the cervical vertebra are maintained. There is no acute fracture seen or any traumatic subluxation. IMPRESSION: 1. Mild cervical spondylosis. 2. No acute fracture or traumatic subluxation. Workstation ID: [id number] Dictated by: LUANN TRIMBLE on SunJan 15, 2024 4:21:13 PM EST Transcribed by: LUANN TRIMBLE on SunJan 15, 2024 4:21:13 PM EST Finalized by: LUANN TRIMBLE on SunJan 15, 2024 4:21:13 PM EST Normal [facility] Comment on above: Order Comment: Injur y/Trauma or Illness?:Injury/Trauma How long have you had these symptoms (acute/chronic)?:Acute Reason for exam?:hit head four times 12 days ago, pain over left occipital region Type of Exam?:Initial Mechanism of injury?:n/a CT HEAD OR BRAIN WITHOUT CON TRASTon 01-15-2024 CT HEAD OR BRAIN WITHOUT CONTRAST EXAMINATION: UNENHANCED CT SCAN OF THE BRAIN: 01/15/2024. HISTORY: Injury/Trauma or Illness?:Injury/Tra rayna How long have you had these symptoms (acute/chronic)?:Ac [place] Posterior stroke/dizziness s/p 4 times hitting hard without LOC 12 days ago COMPARISON FILMS: None. TECHNIQUE: 2.5 mm axial images from skull base through vertex without intravenous contrast were obtained. Sagittal, coronal reconstructions were also performed. Dose reduction techniques were achieved by using automated exposure control and/or adjustment of mA and/or kV according to patient size and/or use of iterative reconstruction technique. FINDINGS: There is no obvious mass, mass effect or midline shift. The ventricles appear prominent however the sulcal, cisternal spaces seem normal. There are mild chronic microvascular ischemic changes surrounding the ventricles. No discrete acute infarct is identified. There is no intra or extraaxial hemorrhage. There is no definite mass, mass effect or midline shift. The visualized intraorbital contents, paranasal sinuses, mastoid air cells appear normal. The calvarium appears intact. IMPRESSION: 1. No acute infarct, hemorrhage or acute intracranial injury. 2. No skull fractures. 3. Mild atrophic changes. RC/jolanta Workstation ID: [id number] Dictated by: SEUN STAUFFER on SunJan 15, 2024 4:12:33 PM EST Transcribed by: CARMEN YIP on SunJan 15, 2024 4:31:47 PM EST Finalized by: SEUN STAUFFER on SunJan 15, 2024 4:57:05 PM EST Normal [facility] Comment on above: Order Comment: Injur y/Trauma or Illness?:Injury/Trauma How long have you had these symptoms (acute/chronic)?:Acute Reason for exam?:hit head four times 12 days ago, pain over left occipital region Type of Exam?:Initial Mechanism of injury?:n/a ED Procedureon 01-15-2024 ED Procedure ECG 12 Lead Date/Time: 01/15/2024 4:10 PM Performed by: Piero Gould DO Authorized by: Shama Mccann DO Interpreted by ED attending physician Comparison: not compared with previous ECG Previous ECG: no previous ECG available Rhythm: sinus rhythm BPM: 66 Conduction: conduction normal ST Segments: ST segments normal T Waves: T waves normal Clinical impression: normal ECG AUTHENTICATED BY PEIRO GOULD, ON 01/15/2024 20:52:49 Normal [facility] ED Prov Noteon 01-15-2024 ED Prov Note [facility] EMERGENCY DEPARTMENT ATTENDING NOTE: NAME: Ifrah Vega CSN: [id number] 58 y.o. PCP: Basil Calderón PA-C History: Chief Complaint: Dizziness HPI: The history was obtained from the patient and spouse. Ifrah is a 58 y.o. female who presents with a chief complaint of Dizziness. The patient has no significant past medical history mentioned, who presents with vertigo and pain at the base of the skull. The symptoms began 12 days ago after the patient banged her head multiple times while painting in a house attic. She reports experiencing vertigo predominantly when lying down on her right side. The patient describes feeling a real bad spell upon lying on her right side and notes that a maneuver performed by her primary care physician initially seemed to alleviate symptoms but did not resolve them completely. She denies loss of consciousness associated with head trauma. The patient experiences persistent pinching occipital pain, described as feeling like somethings pinching me all the time. Neurological symptoms include episodes of transient cheek numbness, which started more than 24 hours prior to the visit. The patient denies any fever, chills, nausea, vomiting, or significant change in vision. There is no history of stroke or use of blood thinners. PMHx: History reviewed. No pertinent past medical history. PMSx: No past surgical history on file. FAM. Hx: History reviewed. No pertinent family history. SOC. Hx: Social History Socioeconomic History Marital status: MEDs: No current outpatient medications on file prior to encounter. ALL: Allergies Allergen Reactions Sulfa (Sulfonamide Antibiotics) GI Intolerance ROS: Review of Systems Positives and pertinent negatives as per HPI. All other systems were reviewed and are negative. Physical Exam: Patient Vitals for the past 24 hrs: BP Temp Temp src Pulse Resp SpO2 Height Weight 01/15/24 1535 (!) 167/89 -- -- 89 18 97 % -- -- 01/15/24 1528 (!) 177/87 -- -- 74 12 98 % -- -- 01/15/24 1525 (!) 175/80 -- -- 82 (!) 19 96 % -- -- 01/15/24 1515 (!) 173/84 98.6 degrees F (37 degrees C) Oral 76 16 98 % -- -- 01/15/24 1510 -- -- -- -- -- -- 5' 3 106.6 kg (235 lb) Physical Exam Constitutional: General: She is not in acute distress. Appearance: Normal appearance. She is not ill-appearing. HENT: Head: Normocephalic and atraumatic. Right Ear: External ear normal. Left Ear: External ear normal. Nose: Nose normal. Mouth/Throat: Mouth: Mucous membranes are moist. Pharynx: Oropharynx is clear. Eyes: Extraocular Movements: Extraocular movements intact. Pupils: Pupils are equal, round, and reactive to light. Cardiovascular: Rate and Rhythm: Normal rate and regular rhythm. Musculoskeletal: General: Tenderness (TTP to left lateral occipital region with TTP to midline C, T, or L spine) present. Normal range of motion. Cervical back: Normal range of motion. Right lower leg: No edema. Left lower leg: No edema. Pulmonary: Effort: Pulmonary effort is normal. Breath sounds: No wheezing, rhonchi or rales. Abdominal: General: There is no distension. Palpations: Abdomen is soft. There is no mass. Tenderness: There is no abdominal tenderness. Skin: General: Skin is warm and dry. Capillary Refill: Capillary refill takes less than 2 seconds. Neurological: Mental Status: She is alert and oriented to person, place, and time. Cranial Nerves: No cranial nerve deficit. Sensory: No sensory deficit. Motor: No weakness. Coordination: Coordination normal. Comments: GCS 15. NIH 0 Laboratory & Radiological Imaging (if done): Labs Reviewed COMPREHENSIVE METABOLIC PANEL - Abnormal; Notable for the following components: Result Value Glucose 187 (*) All other components within normal limits Narrative: [facility] has implemented the eGFR calculation approach that does not have a coefficient for race that conforms to the NKF-ASN Task Force Recommendations. POC GLUCOSE - RALS - Abnormal; Notable for the following components: Glucose 146 (*) All other components within normal limits CBC WITH AUTO DIFFERENTIAL - Abnormal; Notable for the following components: Neutrophils Abs 7.31 (*) All other components within normal limits PT/INR - Normal Narrative: During the induction phase of oral anticoagulation, the INR may not reflect the anticoagulation status of the patient. Therapeutic ranges for INR's are: Most clinical situations: INR 2.0-3.0 Mechanical Prosthetic Valve: INR 2.5-3.5 Critical: INR >5.0 APTT - Normal Narrative: Therapeutic range for APTT's is 68 - 104 seconds CBC AND DIFFERENTIAL Narrative: The following orders were created for panel order CBC and Differential. Procedure Abnormality Status --------- ------ CBC Auto Differential[[id number]] Abnormal Final result Please view results for these (more content not included)... Normal [facility] POC GLUCOSE - RALVickey 024 Glucose [Mass/Vol] 146 mg/dL High 65-99 [facility] Comment on above: Performed By: #### 4 [id number] #### [facility] [address], [place] [address] Otoniel Patel M.D. [id number] PT/INRon 01-15-2024 INR Coag (PPP) [Relative time] 1.0 {INR} Normal 0.8-1.1 [facility] Comment on above: Order Comment: Samaria barrios the induction phase of oral anticoagulation, the INR may not reflect the anticoagulation status of the patient. Therapeutic ranges for INR's are: Most clinical situations: INR 2.0-3.0 Mechanical Prosthetic Valve: INR 2.5-3.5 Critical: INR >5.0 Performed By: #### 4 6391 #### LAB [address], [place] [address] Otoniel Patel M.D. [id number] PT Coag (PPP) [Time] 13.5 s Normal 11.8-14.3 [facility] Comment on above: Order Comment: Samaria barrios the induction phase of oral anticoagulation, the INR may not reflect the anticoagulation status of the patient. Therapeutic ranges for INR's are: Most clinical situations: INR 2.0-3.0 Mechanical Prosthetic Valve: INR 2.5-3.5 Critical: INR >5.0 Performed By: #### 4 6391 #### LAB [address], [place] [address] Otoniel Patel M.D. [id number] TROPONINon 01-15-2024 BASELINE TROPONIN T NG/L 8 ng/L Normal <=14 [facility] Comment on above: Performed By: #### 4 6608 #### LAB [address], [place] [address] Otoniel Patel M.D. [id number] TROPONIN T INTERPRETATION Normal Normal [facility] Comment on above: Performed By: #### 4 6608 #### LAB [address], [place] [address] Otoniel Patel M.D. [id number] Outside Progress Noteon 11-13 Outside Progress Note [id number]. 1 [id number] [id number]#1.00CD:127 Normal [facility] Outside Radiologyon 12-03-19 Outside Radiology [id number]. [id number] [id number]#1.00CD:127 Normal [facility] Outside Radiology [id number]. [id number]#1.00CD:127 Normal [facility] Outside Recordson 12-02-2021 Outside Records [id number]. [id number] 700#1.00CD:127 Normal [facility] Coding Summary.on 11-28-2021 Coding Summary. CD:[id number] VHm4bWi+PGhlYWQ+PE1 YQAIsW48sjAMgyQ1XE8 oLWF4GEWUURFCFWA2NI J2uaWP3QBgvU2KgfoJb JputbJDcIM15QEm9QEG 7cXohHKuohH5roOFpH6 x1JnNgYF07sO16SPwzS NNnOsA1RlEbpezufTRs X7vuEhYizQUuQhc+PHR hYmxlIHdpZHRoPScxMD UnBcProFnkBN4rTs7wA GVyLWNvbGxhcHNlOiBj h3flJUTyUWahEI1noGr wI1HeaGJ9NPGwm4r4Qm 48dHI+DQDdUYS2mXwjX Adjy874FuFzp6yoGKN6 pGYdDScvCTH3I90sy8K 8DMNhATSeXEO4iDS0lP 4oiRjuujvlE2BafZUiJ yO2LUZ0gKZzkO2dbOby jcdawO6eZlr+Q83MOI0 EKZAXTZ3XMyq2Y9XaKg wvdHI+NU18RWHzSQ82g SVaiSGdu0othDw4IgJw GAEsDBX2lGetMXtae3A wENXwZ66xsYXwg7A0KE XloEfyaZBeUyGakFS1k E0dSVzlludac0fbwhgo Kuqsr6cxbn84yJ58C03 iTQlyJDQoGHC3RTKgKC QpoGkipg7vgM3aFx2+I Jcxc0oed0nayXr5XrWo KSZyhuUixBkjAOZ2j1D nCl00N2EuyRydh8HzIo l2pd71fYJel3V5iXL1X JucCHBobW6mLWagDmR0 ELGlYzUdhG43kQFaDRq uEw5wgFonmHfbPF8aWX WesdeiWDFgnS6cBJDjl RRipGaiSB6dYHYugrvo y996DlBwLGJ6LXCovNN qC9JjyB0qOkNtABVsXW ZjM8WlhIFxMVwdL156Q UypHnP1ASVashIhZ9Ma RMCpwPswEhW2j3C4Jl7 Uj2ZolnnmRTC3OBpeEB VfWwF2ZqYzVnJ1N4QjS rk4VDGrqWsbMF1eJ7Di FEXmldugcsrjcLJ5ZDL oGQKojR52aHDwNCpcIp 1iq9Q5h253POXqGINwt L24Jn8jkBfmLVHynPBH oN5yulogu4sqldqsGgY uRSUkAHv0CPd1GSJkwH fnEeInSXT6NtV8SGY1h MBukR2ypXpjkuotuI6l Oyc+U63efT6wLVV9JYM 4ybpqKHNvgwJtWO31WX 46J0OkFlifnECvbMU+P PWugmFldHbyCQ1xNnUj y4agb9BtXDdpP5AaEQB iJYplJhl5TEYyCWZ1gQ O2aY7lEMHlNLofv2G3p FI2J7CbzsSuzj8jz5ie VBMqMBqrX44zsXUig3P 5UOCssDB6ZEAauZpxTu EmaE45Xrc+PGNvbGdyb 0OhCrzpt2ddo7cfhId6 IjMwJSIgdmFsaWduPSJ 2m0WmLq29J51vEYaaHN RoPSIxNSUiIHZhbGlnb k5fjH4rDx0+PGNvbCB3 rJH0xA2yGJZfCpF5OLf iY161QsTnsYYxJpzrq5 bwv9lpfRv1InVsHOTvo cSqoJxkVPZ5t1BtQr50 U44bYDcaSIRgSLOuROV bJWYfaYucse5rpD1bRo 8+TD3td6stva28aY91s HI+NSWpLKC9vUtlYRsd OZMifF6iYYesTzV9XIE nOwVthM78xYLnYJnvSu 5wsCziqWaoSV9mKRCrk xakn153EfYcb7icWGXm yLJgJFgsXSK6A51mm2F 6ZCAxPSRiNSB3eBW7mM 1hbGlnbjogbGVmdDsgd tPmtKbmSJhsWHnaI247 IHRvcDsnPlBhdGllbnQ zGhTyVMw1P8TnHfw3PK TdfJypYK5flJNdUWutX k4fnLqtcKbcWJ2dBNTh rufkj554DtMap0wmPIR qnICaHGakLSN1D75oq0 I5EGBeNDZcCIQ1vHG8s A9cyXjdqijnaOOxkGvu vsPakJpnBMrrLUfdE75 6IHRvcDsnPkJpcnRoIE SaeZK9PT01HY15vOMgc 1Q7bNJ5N9SzFPBlxgtv ryvoqWM9SIZsMSKflS7 5Tt1czGryWb6yZEMzBH V0SNPbmTErI3IhlP0vK vKnNJOpUSFfF0TsoYAz ODilH843RQzqOcQ5MAC wqtToA8NxKFHfsEoxRz Z4k5R5Uh6JO6M5WM11C B57zQTqe1S0sDI0J8Ld EKQikwciiiimiGC2TWH aNIXqiN80Tg5olHvqZu 6fPOClUYG0YPYiyUNgA 3WgeB7aEuCoASYlCWTx A4AlfBSlKVycG262TMn aPjE8SYVknnJeY7AvWC GgxQphXsF4k7C4Om3SZ Bs2WT07VD76pRCtn4D5 kDF5O5XmZTEncnkbwfr ciXD3DVGnQWRcdU72Yf 0yiKnvUo0cNENcCPU3F BTvoMShR0KgkI9zDpWh EZXoGBGjP1TpmVRwZRc vI620GKueJbD4PFTosh VmW6MzFLJtpBofDfX2h 7S9Wu5ZFHSiMM70RQF0 cHF0UQ11SB06I1JqNqd vdGFibGU+PHRhYmxlIH dpZHRoPScxMDAlJyBzd TonVI7mCd8tNDPiWWLu bCgrbYHbXtJzk3yhETH bAMuaSR3neMdiC6FarT O1FTRwh7y7Ka27R81cG 3JvdXA+AMHsvAV3cUQ2 wE7lUmVtCuH2ELpcE98 6PnDuhWUzUpzui1zym1 tfmAu2UdH0DKWynlNlv CmgUHO3c6VrMx37A64i IHdpZHRoPSIxNSUiIHZ yxTaeyv6rbY3iUo2+PG WxpSR7uIF5zP6pOpThN eO3AMisR030NpDqdQJt Xtfab2txj0zcmKe8MiF yFVWuxmBcbBqoEEK3x1 QiOc07N9OfqUtgx2MlG fp3ts63uTPvf9K6nBX6 H4HzGLXlkwvanVNfxJf dZC0eKTFnzydpPNKskB 7bQGMcX2x8WuNxOuP0K KvfW8TwjkI3VOJqiTIv RPqkKAS0A63qr3J5AOT nIELqYUR3gFI7aF8hiI lnbjogbGVmdDsgdmVyd GvxLQhoNIgkX124MAFz rXaiIPJtzB3eTPLooXW ncHgbSX4lVXQwrwaoVd rRDK5BZrlyT3DUPM6nF jwvdGQ+NZJfZJI6nSuj WFaaEGVekO5vRCBmL0g 3HxOuBlS6NVzhV9NtIH FckxyzEl21mG7uSmLxE dW4EKvzT9EocjR5QVXq yKWrTAalXEC2I76jo8Y 3GYCjSPFuVUU9aQI5eC 1hbGlnbjogbGVmdDsgd nGpbFgtMHjjZTeiN439 PVRyjApaWnWlPzJ3VdG 9Pnj0V5UtBwq0SREynU qmCI9caUVvIOgmQw4ni PhhoBpaVF6dCLElbrtp LDYjeT3kLUWwhDQntBq cUD4kCLYphnplp913Oz LqVHQ6LPLynAWiY6Was C0yAzMcIFGsYDOuA4Yd uEQyIViqQ839JWbjLuO 6QXJjdrNjP3TvBBAuqM onYlN0i0G3Zc10RGIWD WFyczwvdGQ+PHRkIHN0 qHvcGHhkHLGfdA7iHNG oK0v1NmZqEuB1NVxyM9 HjQPRflfshEc74gG7fA uFdKyQ7LJdnI2LctlH3 VEPfxNZvPKhwBSX3W94 uf5B3KEAgLCWzVAM3fW V2uI2rsRmlcfxplBIlq DsgdmVydGljYWwtYWxp H609KCXmtKdwGsVlrHW sZTwvdGQ+YRFhTIM6pZ noNArqCGCbfI8oLKQsV 4s8YqPlAeE0AVgxX6Pq GXAgsqysVm11zR8uHeV jFaT5QMgoE7HnlmI5HS WzmFMvWAagNSE1U16xm 1Y0WIWeMRDbFYX2qNB5 tI0owNmbxhdqmZJyaZa gdmVydGljYWwtYWxpZ2 39ZOEdcWqkDf12yVBxr JvpouD1H8UsQblcrHO+ JR68XZIyCU78zUPlzUY vb2elrCr4MlPkTZOqSN H0uUnpGUoak0EoCPAdM 15ixAQlh2Y4WHYxkVod gYZdFtGmzOC9pZ3aECp csoque8ujvytlFyorl0 qdlr29eK43M24tNIdgJ HRoPSIzMCUiIHZhbGln yq0ruG4tAq4+PGNvbCB 7pXF7pL8wLlZnXyO6JB swL958CkMphESxVtwpw 3lyk3tscQy7BrGtXOWq lbUnwDceSES2l6TrBz0 3Y76mWOpmONMeGSZxVE VdDHFtxTqhsd6eiX2bR i8+GN8uh8veja80xF14 dHI+GLWuBKD0lPseLKf fLHHhuJ3mZVlmZrR7HG KsXjBchJ16vVYdOHfwU t0muDyiiFigFU2oPMVa xjdpv222DrWct5ciAUJ yvPZhVVkrNSD8F31le6 Y2OFGvDSCfOTU8rJA0f Y3srBbcuauvkCGpfIiq qcEemNwjFCkyAXsnY67 2NTYqsTokHpIdvHZmI7 ptptCISL3hAdujeBZ+P QJtLNL9uTsrTEihNWZx rC5pKSHaE4f2UrCbNsB 9NHzcQ6KfljK3CDXemD ViAGNnvTPXlL2mvogwa 9udspieKzAjGQYpJTm9 TKu4ZWMpgRqrMnAzPIV 6KjP3TJW6hZOmcT3tzJ toadcueF8tJta+RklOO jwvdGQ+FIJxDLZ0kMgl JNcsMSXjbH0mBIHkJ2i 1IdAsYfF9SVzoN9Bqpz Q3QLCzdYHoSOKamWOAx J8fejiyc7xjlgpqVwJs NINwFGn5AOk4ZLXnvEe nVtOuTWS8CxG8KDW8wF MayG5avZmrdjfykV3yO yc+TVJOOjwvdGQ+PHRk KXM5aRdnZAgwOHXrnS0 uWIIpZ7g7EkGwDmA5VE zhL2OzicI1ZYHmdXPeD SNtrWMCaL1hidcfa1xl wbyiNjGuAMPkCMa0MQs 7XPVacHbrQbUtMHH6Md U5ZWD2rTQfmF5evZhyg jzaaE7aPns+RMY3GVZ5 FI37CZ07F3OqMbvihDC ibGU+PHRhYmxlIHdpZH RoPScxMDAlJyBzdHlsZ Y0gPu1tPHWuBPIxlCgt cHNl (more content not included)... Normal [facility] Oncology Progress Noteon Oncology Progress Note Patient: IFRAH VEGA Age: 56 years Sex: Female : 1965 Associated Diagnoses: None Author: Derrick Hudson DO History of Present Illness 56 year old female initially presented to [facility] in 2014 with abnormal unterine bleeding. SHe had robotic hysterctomy and bilateral salpingectomy on 05/07/[address] Conte for presumptive firbroids. She then had been referred to Dr Joey Maguire gynon and had completion surgeries diagnostic lab etc. She then returned to ED with abdominal pain in 2016. 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 She again had robotic tumor removal and path confirmed it was present in 3 mesenteric deposits and right peritoneum. She began arimidex in dec 2016, but changed to megace in oct 2017 secondary to side effects. ct abd pelvis with contrst from 05/13/21 notes decrease in size of nodularity of the left psoas no new lesion. in nov 2021, she presented to our clinic here at [facility] as she has moved to [place]. SHe is doing well, no specific complaints. continues megace and struggles with weight. 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 She has 10 children. Review of Systems Constitutional: Negative. Eye: Negative. Ear/Nose/Mouth/Thro at: Negative. Respiratory: Negative. Cardiovascular: Negative. Gastrointestinal: Negative. Genitourinary: Negative. Hematology/Lymphati cs: Negative. Endocrine: Negative. Immunologic: Negative. Musculoskeletal: Negative. Integumentary: Negative. Neurologic: Negative. Psychiatric: Negative. All other systems are negative Health Status Allergies: Allergic Reactions (Selected) Severity Not Documented Sulfa drugs- Pain and severe stomach pain. Current medications: No qualifying data available , No qualifying data available Problem list: All Problems Resolved: Hypertension / SNOMED CT 73773620 Histories Past Medical History: Resolved Hypertension (20073764): Resolved. Family History: No family history items have been selected or recorded. Procedure history: Biopsy ([id number]). Social History Social & Psychosocial Habits No Data Available . Physical Examination Vital Signs 11/23/2021 15:30 EDT Temperature Oral 36.8 DegC Heart Rate Monitored 61 bpm Respiratory Rate 17 br/min Systolic Blood Pressure 156 mmHg HI Diastolic Blood Pressure 81 mmHg Blood Pressure Location Left arm Mean Arterial Pressure, Monitered 106 mmHg SpO2 99 % BP/Pulse Patient Position Sitting General: Alert and oriented. Eye: Pupils are equal, round and reactive to light, Extraocular movements are intact, Normal conjunctiva. HENT: Normocephalic, Oral mucosa is moist, No pharyngeal erythema. Neck: Supple, Non-tender. Respiratory: Lungs are clear to auscultation. Cardiovascular: Normal rate, Regular rhythm, No murmur. Gastrointestinal: Soft, Non-tender. Lymphatics: No cervical, supraclavicular, axilla, inguinal adenopathy.. Musculoskeletal Normal range of motion. Integumentary: Warm, Dry, [place]. Neurologic: Alert, Oriented, Normal sensory. Psychiatric: Cooperative, Appropriate mood & affect. Review / Management Results review: No qualifying data available . Impression and Plan Education and Follow-up: Counseled: Patient, Regarding diagnosis, Regarding treatment. Discharge Planning: Derrick Hudson make sure her preivous imaing from [facility] is uploaded to our system. ct a/p with iv contrast. cbc, cmp, ca125 prior to the CT scan. write her for her megace . 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 Dr. Maguire. Intially had a laparoscopy, hysterectomy, BSO in [address] proving recurrence of low grade endometrial stromal tumor in oct 2016 and repeat laparostomy and resection in dec 2016 began arimidex in december 2016, stopped in oct 2017 due to neuropathy started megace in oct 2017 and tolerating ewll. Subsequent imaging monitoring L pelvic sidewall lesion. Normal [facility] ONC - Otheron 11-25-2021 ONC - Other [id number].. [id number] 117#1.00CD:127 [facility] ONC - Other [id number] 505#1.00CD:127 [facility] Consent for Treatmenton 11-12 Consent for Treatment [id number] 42#1.00CD:127 [facility] Oncology Noteon 11-23-2021 Oncology Note [employer] Office Visit/Treatment Note Current Patient Status/Reason: Pt in for initial clinic visit. Pt saw Dr. Maguire in [place] and moved to this area after diagnosis of endometrial stromal sarcoma. I accompanied Dr. Hudson in room. Treatment Plan: Scans, and labs. Continue Megace. Follow-Up Appointment Info/Referrals: F/U in 3 weeks or after scan. Resources Offered: I gave pt my contact information and instructed to call with any questions or concerns. Pt states she does have home phone and cell phone. Pt asked about bill, I explained financial assistance and to fill out same with bills, located on back of form. Pt voiced understanding of same. [facility] Comment on above: Result Comment: Elec tronically Signed By: Maddi WATERMAN, Carmen\.br\Date and Time Signed: 11/23/21 16:49 EDT Vital Signs Date Time Vital Sign Value Performing Clinician Facility 08-04-2024 08:39-0400 Body height 160 cm Luann Joshi MD Work Phone: [facility] 08-04-2024 08:39-0400 Body mass index (BMI) [Ratio] 41.7 kg/m2 Luann Joshi MD Work Phone: [facility] 08-04-2024 08:39-0400 Body temperature 97.59 [degF] Luann Joshi MD Work Phone: [facility] 08-04-2024 08:39-0400 Body weight 106.78 kg Luann Joshi MD Work Phone: [facility] 05-12-2024 08:36-0400 Body height 160 cm Luann Joshi MD Work Phone: [facility] 05-12-2024 08:36-0400 Body mass index (BMI) [Ratio] 42.37 kg/m2 Luann Joshi MD Work Phone: [facility] 05-12-2024 08:36-0400 Body temperature 98.49 [degF] Luann Joshi MD Work Phone: [facility] 05-12-2024 08:36-0400 Body weight 108.5 kg Luann Joshi MD Work Phone: [facility] 01-31-2024 08:03-0500 Body mass index (BMI) [Ratio] 41.49 kg/m2 Fab Garcia MD Work Phone: [facility] 01-31-2024 08:03-0500 Body weight 106.23 kg Fab Garcia MD Work Phone: [facility] 01-31-2024 08:03-0500 Diastolic blood pressure 82 mm[Hg] Fab Garcia MD Work Phone: [facility] 01-31-2024 08:03-0500 Heart rate 67 /min Fab Garcia MD Work Phone: [facility] 01-31-2024 08:03-0500 Respiratory rate 16 /min Fab Garcia MD Work Phone: [facility] 01-31-2024 08:03-0500 SaO2% (BldA) [Mass fraction] 98 % Fab Garcia MD Work Phone: [facility] 01-31-2024 08:03-0500 Systolic blood pressure 137 mm[Hg] Fab Garcia MD Work Phone: [facility] 05-14-2023 06:50-0400 Body height 160 cm Irving Valdez Jr., Work Phone: [facility] 05-14-2023 06:50-0400 Body mass index (BMI) [Ratio] 40.03 kg/m2 Irving Cherieandersonheaven Wang., DO Work Phone: [facility] 05-14-2023 06:50-0400 Body temperature 98.71 [degF] Irving Valdez Jr., DO Work Phone: [facility] 05-14-2023 06:50-0400 Body weight 102.5 kg Irving Cherieandersonheaven Wang., DO Work Phone: [phone] [place] [address] 05-14-2023 06:50-0400 Diastolic blood pressure 82 mm[Hg] Irving Crespoandersonheaven Wang., DO Work Phone: [phone])[phone] [place] [address] 05-14-2023 06:50-0400 Systolic blood pressure 130 mm[Hg] Irving Cherieandersonheaven Wang., DO Work Phone: [phone] [place] [address] 11-13-2022 07:00-0400 Body height 160 cm Irving Cherieandersonheaven Wang., DO Work Phone: [phone] [place] [address] 11-13-2022 07:00-0400 Body mass index (BMI) [Ratio] 40.03 kg/m2 Irving Cherieandersonheaven Wang., DO Work Phone: [phone] [place] [address] 11-13-2022 07:00-0400 Body weight 102.51 kg Irving Valdez Jr., DO Work Phone: [phone] [place] [address] 11-13-2022 07:00-0400 Diastolic blood pressure 88 mm[Hg] Irving Chapmanheaven ., DO Work Phone: [phone] [place] [address] 11-13-2022 07:00-0400 Systolic blood pressure 124 mm[Hg] Irving Valdez Jr., DO Work Phone: [phone] [place] [address] 05-15-2022 07:42-0400 Body height 160 cm Irving Cherieandersonheaven Wang., DO Work Phone: [phone] [place] [address] 05-15-2022 07:42-0400 Body mass index (BMI) [Ratio] 40.03 kg/m2 Irving Valdez Jr., DO Work Phone: [facility] 05-15-2022 07:42-0400 Body temperature 97 [degF] Irving Valdez Jr., DO Work Phone: [facility] 05-15-2022 07:42-0400 Body weight 102.51 kg Irving Valdez Jr., DO Work Phone: [facility] 05-15-2022 07:42-0400 Diastolic blood pressure 88 mm[Hg] Irving Valdez Jr., DO Work Phone: [facility] 05-15-2022 07:42-0400 Heart rate 64 /min Irving Valdez Jr., DO Work Phone: [facility] 05-15-2022 07:42-0400 SaO2% (BldA) [Mass fraction] 97 % Irving Valdez Jr., DO Work Phone: [facility] 05-15-2022 07:42-0400 Systolic blood pressure 124 mm[Hg] Irving Valdez Jr., DO Work Phone: [facility] 11-23-2021 15:30-[address] [facility] 11-23-2021 15:30-0400 Body temperature 98.24 [degF] [facility] 11-23-2021 15:30-0400 BP/Pulse Patient Position [facility] 11-23-2021 15:30-0400 Diastolic blood pressure 81 mm[Hg] [facility] 11-23-2021 15:30-0400 Heart rate 61 /min [facility] 11-23-2021 15:30-0400 Mean blood pressure 106 mm[Hg] [facility] 11-23-2021 15:30-0400 Respiratory rate 17 /min [facility] 11-23-2021 15:30-0400 SaO2% (BldA) [Mass fraction] 99 % [facility] 15:30-0400 Systolic blood pressure 156 mm[Hg] Derrick Chakrabortyalbino [facility] Encounters Encounter Date Encounter Type Care Provider Facility Start: 09-24-2024 ambulatory Belén Almaraz Facility :[facility] Start: 08-04-2024 End: 08-04-2024 Office outpatient visit 15 minutes Luann Joshi MD Work Phone: [facility] [place] Comment on above: Cervicogenic dizzine ss (Primary Dx) Start: 08-04-2024 End: 08-04-2024 ambulatory BASIL NAZARIO [facility] Start: 08-01-2024 ambulatory BASIL EULA [facility] Start: 06-27-2024 End: 06-27-2024 ambulatory JOHNNIE PINA ANDREAS Not Available Start: 06-25-2024 End: 06-25-[address] Basil Calderón PA-C Work Phone: [facility] Work Phone: Start: 06-25-2024 End: 06-25-[address] Belén Almaraz MD [facility] [place] Work Phone: Start: 06-25-2024 End: 06-25-2024 ambulatory Basil Calderón Facility:[facility] Start: 05-22-2024 ambulatory BASIL NAZARIO [facility] Start: 05-12-2024 End: 05-12-2024 Office outpatient new 45 minutes Fab Garcia MD Work Phone: [facility] Comment on above: Vertigo (Primary Dx) ; Abnormal auditory perception of right ear; Vertigo, aural, right; Benign paroxysmal positional vertigo of right ear Start: 05-12-2024 End: 05-16-2024 Clinical Support Kia Russell Work Phone: [facility] Comment on above: Vertigo (Primary Dx) Start: 01-31-2024 End: 01-31-2024 Office outpatient new 60 minutes Shama Mccann DO Work Phone: [facility] Comment on above: Vertigo, aural, righ t (Primary Dx); Benign paroxysmal positional vertigo of right ear Start: 01-31-2024 End: 01-31-2024 ambulatory SHAMA MCCANN [facility] Ambulatory Start: 01-28-2024 End: 01-28-2024 ambulatory BRITTNEY VILLA Not Available Start: 01-15-2024 End: 01-15-2024 Emergency department patient visit BRITTNEY VILLA [facility] Start: 09-17-2023 [facility]: 05-14-[facility]23 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; Primary osteoarthritis of both hands Start: 05-15-2022 ambulatory [facility] Start: 05-15-2022 End: 05-15-2022 Office outpatient visit 25 minutes Irving aVldez DO Work Phone: [facility] Comment on above: Psoriatic arthritis (Primary Dx); Abnormal renal function test; Family history of psoriasis; Family history of psoriatic arthritis; History of psoriatic arthritis; 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 cancer; 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 non-steroidal anti-inflammatories (NSAID); 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 Start: 11-23-2021 End: 11-23-2021 Patient encounter procedure Derrick Hudson [facility] Procedures Date Procedure Procedure Detail Performing Clinician Biopsy Derrick Mcknight cz Plan of Treatment Date Care Activity Detail Author Start: 01-30-2025 Depression screening using PHQ-9 (Patient Health Questionnaire 9) score Depression Screening/Follow-Up (PHQ-2/9) [facility] Start: 10-13-2024 Influenza vaccination Influenza Vaccine (Season Ended) [facility] Start: 08-04-2024 End: 08-04-2024 Patient encounter procedure 08/04/2024 8:45 AM EDT Office Visit [facility] [address] [place] [phone] Luann Joshi MD [address] [place] [id number] [facility] Start: 10-14-2023 COVID-19 Vaccine ( season) COVID-19 Vaccine ( season) [facility] Start: 10-14-2023 Influenza vaccination miiCard Syste m Start: 09-17-2023 End: 09-17-2023 Patient encounter procedure 09/17/2023 8:30 AM EDT Office Visit [facility] [address] [place] [phone] José Miguel Ely, Irving Barrios[address] [address] [facility] Start: 05-14-2023 End: 05-14-2023 Patient encounter procedure 05/14/2023 7:00 AM EDT Office Visit [facility] [address] [place] [phone] Irving Valdez Jr., [address] [place] [phone] [facility] Start: 11-13-2022 End: 11-14-2023 M TUBERCULOSIS BY QUANTIFERON, BLD M TUBERCULOSIS BY QUANTIFERON, BLD Lab Routine Psoriatic arthritis Abnormal renal function test Encounter for monitoring of etanercept therapy Family history of psoriasis Family history of psoriatic arthritis History of psoriatic arthritis 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 cancer 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 non-steroidal anti-inflammatories (NSAID) Methotrexate, detention, current use 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 osteoarthritis of both hands Expected: 11/13/2022 (Approximate), Expires: 11/14/2023 [facility] Comment on above: Expected: 11/13/2022 (Approximate), Expi res: 11/14/2023 Start: 11-13-2022 End: 11-13-2022 Patient encounter procedure 11/13/2022 Office Visit Rheumatology Irving Valdez Jr., [address] [place] [phone] [facility] Start: 10-13-2022 COVID-19 VACCINE ( season) COVID-19 VACCINE ( season) [facility] Start: 10-13-2022 Influenza vaccination [facility] Start: 2016 Administration of herpes zoster vaccine Zoster Vaccines (1 of 2) [facility] Start: 2016 Screening for malignant neoplasm of colon Flexible sigmoidoscopy [facility] Start: 2016 Zoster vaccine hzv live for subcutaneous use ZOSTER (SHINGLES) VACCINE (1 of 2) [facility] Start: 2011 Screening for malignant neoplasm of colon COLORECTAL CANCER SCREENING DISCUSSION [facility] Start: 2006 Lipid panel LIPID SCREENING [facility] Start: 01-26-2007 Screening for malignant neoplasm of breast [facility] Start: 1996 Screening for malignant neoplasm of cervix [facility] Start: 1987 Screening for malignant neoplasm of cervix [facility] Start: 1985 Administration of herpes zoster vaccine Zoster Vaccines (1 of 2) [facility] Start: 1985 Hepatitis B vaccination HEP B VACCINE (1 of 3 - 19+ 3-dose series) [facility] Start: 1985 Pneumococcal Vaccine: Age 50+ (1 of 2 - PCV) Pneumococcal Vaccine: Age 50+ (1 of 2 - PCV) [facility] Start: 1985 Third diphtheria, tetanus and acellular pertussis (DTaP) vaccination TDAP (ADULT) [facility] Start: 1984 Hepatitis C screening Hepatitis C Screening [facility] Start: 1981 HIV screening [facility] Start: 1978 Depression screening using PHQ-9 (Patient Health Questionnaire 9) score Depression Screening/Follow-Up (PHQ-2/9) [facility] Start: 1971 COVID-19 Vaccine (#1) COVID-19 Vaccine (#1) [facility] Start: 1969 History and physical examination, annual for health maintenance Wellness Visit [facility] Start: 1966 COVID-19 VACCINE (#1) COVID-19 VACCINE (#1) [facility] Start: 1966 Hepatitis C screening HEPATITIS C VIRUS SCREENING [facility] Start: 1966 Screening for malignant neoplasm of colon [facility] Start: 1966 Tetanus vaccination [facility] End: 05-16-2023 Alanine aminotransferase [Enzymatic activity/volume] in Serum or Plasma ALT Lab Routine Psoriatic arthritis Abnormal renal function test Family history of psoriasis Family history of psoriatic arthritis History of psoriatic arthritis 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 cancer 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) Methotrexate, exterminator, current use Hyperglycemia 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 osteoarthritis of both hands Every 12 Weeks for 4 Occurrences starting 05/15/2022 until 05/16/2023 [facility] Comment on above: Every 12 Weeks for 4 Occurrences startin g 05/15/2022 until 05/16/2023 End: 11-14-2023 Alanine aminotransferase [Enzymatic activity/volume] in Serum or Plasma ALT Lab Routine Psoriatic arthritis Abnormal renal function test Encounter for monitoring of etanercept therapy Family history of psoriasis Family history of psoriatic arthritis History of psoriatic arthritis 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 cancer 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 non-steroidal anti-inflammatories (NSAID) Methotrexate, exterminator, current use 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 osteoarthritis of both hands Every 12 Weeks for 4 Occurrences starting 11/13/2022 until 11/14/2023 [facility] Comment on above: Every 12 Weeks for 4 Occurrences startin g 11/13/2022 until 11/14/2023 End: 05-13-2024 Alanine aminotransferase [Enzymatic activity/volume] in Serum or Plasma ALT Lab Routine Psoriatic arthritis Primary osteoarthritis of both 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 Methotrexate, exterminator, current use 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 cancer History of psoriatic arthritis Family history of psoriatic arthritis Family history of psoriasis Hyperchloremia Every 8 Weeks for 6 Occurrences starting 05/14/2023 until 05/13/2024 [email or web address] Comment on above: Every 8 Weeks for 6 Occurrences starting 05/14/2023 until 05/13/2024 End: 05-16-2023 Aspartate aminotransferase [Enzymatic activity/volume] in Serum or Plasma AST Lab Routine Psoriatic arthritis Abnormal renal function test Family history of psoriasis Family history of psoriatic arthritis History of psoriatic arthritis 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 cancer 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 non-steroidal anti-inflammatories (NSAID) Methotrexate, detention, current use Hyperglycemia 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 osteoarthritis of both hands Every 12 Weeks for 4 Occurrences starting 05/15/2022 until 05/16/2023 [facility] Comment on above: Every 12 Weeks for 4 Occurrences startin g 05/15/2022 until 05/16/2023 End: 11-14-2023 Aspartate aminotransferase [Enzymatic activity/volume] in Serum or Plasma AST Lab Routine Psoriatic arthritis Abnormal renal function test Encounter for monitoring of etanercept therapy Family history of psoriasis Family history of psoriatic arthritis History of psoriatic arthritis 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 cancer 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) Methotrexate, detention, current use 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 osteoarthritis of both hands Every 12 Weeks for 4 Occurrences starting 11/13/2022 until 11/14/2023 [facility] Comment on above: Every 12 Weeks for 4 Occurrences startin g 11/13/2022 until 11/14/2023 End: 05-13-2024 Aspartate aminotransferase [Enzymatic activity/volume] in Serum or Plasma AST Lab Routine Psoriatic arthritis Primary osteoarthritis of both 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 Methotrexate, exterminator, current use 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 cancer History of psoriatic arthritis Family history of psoriatic arthritis Family history of psoriasis Hyperchloremia Every 8 Weeks for 6 Occurrences starting 05/14/2023 until 05/13/2024 [facility] Comment on above: Every 8 Weeks for 6 Occurrences starting 05/14/2023 until 05/13/2024 End: 05-16-2023 C-reactive protein C REACTIVE PROTEIN Lab Routine Psoriatic arthritis Abnormal renal function test Family history of psoriasis Family history of psoriatic arthritis History of psoriatic arthritis 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 cancer 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 non-steroidal anti-inflammatories (NSAID) Methotrexate, detention, current use Hyperglycemia 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 osteoarthritis of both hands Every 12 Weeks for 4 Occurrences starting 05/15/2022 until 05/16/2023 [email or web address] Comment on above: Every 12 Weeks for 4 Occurrences startin g 05/15/2022 until 05/16/2023 End: 11-14-2023 C-reactive protein C REACTIVE PROTEIN Lab Routine Psoriatic arthritis Abnormal renal function test Encounter for monitoring of etanercept therapy Family history of psoriasis Family history of psoriatic arthritis History of psoriatic arthritis 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 cancer 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 non-steroidal anti-inflammatories (NSAID) Methotrexate, exterminator, current use 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 osteoarthritis of both hands Every 12 Weeks for 4 Occurrences starting 11/13/2022 until 11/14/2023 [facility] Comment on above: Every 12 Weeks for 4 Occurrences startin g 11/13/2022 until 11/14/2023 End: 05-13-2024 C-reactive protein C REACTIVE PROTEIN Lab Routine Psoriatic arthritis Primary osteoarthritis of both 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 Methotrexate, exterminator, current use 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 cancer History of psoriatic arthritis Family history of psoriatic arthritis Family history of psoriasis Hyperchloremia Every 8 Weeks for 6 Occurrences starting 05/14/2023 until 05/13/2024 [facility] Comment on above: Every 8 Weeks for 6 Occurrences starting 05/14/2023 until 05/13/2024 End: 05-16-2023 Complete blood count with white cell differential, automated CBC, EDIF, PLATELET Lab Routine Psoriatic arthritis Abnormal renal function test Family history of psoriasis Family history of psoriatic arthritis History of psoriatic arthritis 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 cancer 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 non-steroidal anti-inflammatories (NSAID) Methotrexate, detention, current use Hyperglycemia 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 osteoarthritis of both hands Every 12 Weeks for 4 Occurrences starting 05/15/2022 until 05/16/2023 [facility] Comment on above: Every 12 Weeks for 4 Occurrences startin g 05/15/2022 until 05/16/2023 End: 11-14-2023 Complete blood count with white cell differential, automated CBC, EDIF, PLATELET Lab Routine Psoriatic arthritis Abnormal renal function test Encounter for monitoring of etanercept therapy Family history of psoriasis Family history of psoriatic arthritis History of psoriatic arthritis 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 cancer 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 non-steroidal anti-inflammatories (NSAID) Methotrexate, exterminator, current use 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 osteoarthritis of both hands Every 12 Weeks for 4 Occurrences starting 11/13/2022 until 11/14/2023 [facility] Comment on above: Every 12 Weeks for 4 Occurrences startin g 11/13/2022 until 11/14/2023 End: 05-13-2024 Complete blood count with white cell differential, automated CBC, EDIF, PLATELET Lab Routine Psoriatic arthritis Primary osteoarthritis of both 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 Methotrexate, exterminator, current use 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 cancer History of psoriatic arthritis Family history of psoriatic arthritis Family history of psoriasis Hyperchloremia Every 8 Weeks for 6 Occurrences starting 05/14/2023 until 05/13/2024 [facility] Comment on above: Every 8 Weeks for 6 Occurrences starting 05/14/2023 until 05/13/2024 End: 05-16-2023 Creatinine [Mass/volume] in Serum or Plasma CREATININE SERUM Lab Routine Psoriatic arthritis Abnormal renal function test Family history of psoriasis Family history of psoriatic arthritis History of psoriatic arthritis 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 cancer 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 non-steroidal anti-inflammatories (NSAID) Methotrexate, exterminator, current use Hyperglycemia 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 osteoarthritis of both hands Every 12 Weeks for 4 Occurrences starting 05/15/2022 until 05/16/2023 [facility] Comment on above: Every 12 Weeks for 4 Occurrences startin g 05/15/2022 until 05/16/2023 End: 11-14-2023 Creatinine [Mass/volume] in Serum or Plasma CREATININE SERUM Lab Routine Psoriatic arthritis Abnormal renal function test Encounter for monitoring of etanercept therapy Family history of psoriasis Family history of psoriatic arthritis History of psoriatic arthritis 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 cancer 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 non-steroidal anti-inflammatories (NSAID) Methotrexate, exterminator, current use 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 osteoarthritis of both hands Every 12 Weeks for 4 Occurrences starting 11/13/2022 until 11/14/2023 [facility] Comment on above: Every 12 Weeks for 4 Occurrences startin g 11/13/2022 until 11/14/2023 End: 05-13-2024 Creatinine [Mass/volume] in Serum or Plasma CREATININE SERUM Lab Routine Psoriatic arthritis Primary osteoarthritis of both 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 Methotrexate, detention, current use 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 cancer History of psoriatic arthritis Family history of psoriatic arthritis Family history of psoriasis Hyperchloremia Every 8 Weeks for 6 Occurrences starting 05/14/2023 until 05/13/2024 [facility] Comment on above: Every 8 Weeks for 6 Occurrences starting 05/14/2023 until 05/13/2024 End: 05-16-2023 SEDIMENTATION RATE, AUTOMATED SEDIMENTATION RATE, AUTOMATED Lab Routine Psoriatic arthritis Abnormal renal function test Family history of psoriasis Family history of psoriatic arthritis History of psoriatic arthritis 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 cancer 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) Methotrexate, exterminator, current use Hyperglycemia 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 osteoarthritis of both hands Every 12 Weeks for 4 Occurrences starting 05/15/2022 until 05/16/2023 [facility] Comment on above: Every 12 Weeks for 4 Occurrences startin g 05/15/2022 until 05/16/2023 End: 11-14-2023 SEDIMENTATION RATE, AUTOMATED SEDIMENTATION RATE, AUTOMATED Lab Routine Psoriatic arthritis Abnormal renal function test Encounter for monitoring of etanercept therapy Family history of psoriasis Family history of psoriatic arthritis History of psoriatic arthritis 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 cancer 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) Methotrexate, detention, current use 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 osteoarthritis of both hands Every 12 Weeks for 4 Occurrences starting 11/13/2022 until 11/14/2023 [facility] Comment on above: Every 12 Weeks for 4 Occurrences startin g 11/13/2022 until 11/14/2023 End: 05-13-2024 SEDIMENTATION RATE, AUTOMATED SEDIMENTATION RATE, AUTOMATED Lab Routine Psoriatic arthritis Primary osteoarthritis of both 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 Methotrexate, exterminator, current use 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 cancer History of psoriatic arthritis Family history of psoriatic arthritis Family history of psoriasis Hyperchloremia Every 8 Weeks for 6 Occurrences starting 05/14/2023 until 05/13/2024 [facility] Comment on above: Every 8 Weeks for 6 Occurrences starting 05/14/2023 until 05/13/2024 End: 05-13-2024 Urate [Mass/volume] in Serum or Plasma URIC ACID Lab Routine Psoriatic arthritis Primary osteoarthritis of both 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 Methotrexate, detention, current use 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 cancer History of psoriatic arthritis Family history of psoriatic arthritis Family history of psoriasis Hyperchloremia Every 8 Weeks for 6 Occurrences starting 05/14/2023 until 05/13/2024 [facility] Comment on above: Every 8 Weeks for 6 Occurrences starting 05/14/2023 until 05/13/2024 Payers Date Payer Category Payer Unknown [id number] 2021 Self-pay 1965 Unknown [id number] Unknown [id number] Unknown [id number] Social History Date Type Detail Facility Tobacco smoking status [facility] Start: 11-13-2022 End: 01-31-2024 Sex Assigned At Female [facility] Start: 12-21-2021 End: 05-12-2024 Tobacco smoking status CTIS Never smoked tobacco [facility] Start: 12-21-2021 End: 05-12-2024 Tobacco use and exposure Smokeless tobacco non-user [facility] Start: 05-15-2022 End: 08-04-2024 Alcohol intake Lifetime non-drinker (finding) [facility] Start: 1965 Sex Assigned At Not on file [facility] Start: 11-13-2022 End: 01-31-2024 History of Social function [facility] Tobacco smoking status NHIS Tobacco smoking consumption unknown [facility] Adult Depression Screening Assessment 13 [facility] Start: 1965 Sex Assigned At Female W [facility] NEGATED: Highlighted rowStart: NINF History of tobacco use Passive smoker [facility] Clinical Notes 07-26-2021 to 08-04-2024 Luann Joshi MD - 08/04/2024 9:00 AM Angelique Liu MA - 08/04/2024 8:43 AM Kia Araya AuD - 05/12/2024 9:09 AM Luann Perkins MD - 05/12/2024 8:42 AM EDTLaboratory Note Date & Type Note Facility 08-04-2024 Note [facility] [address] [facility] [place] [address] [facility] [id number] Dept: [phone] MD Ifrah Clarke 59 y.o. female Patient presents with a chief complaint of 3 mo f/u ear fullness + dizziness, hx childhood RAOM Temp 97.6 degrees F (36.4 degrees C) (Oral) Ht 5' 3 Wt 106.8 kg (235 lb 6.4 oz) BMI 41.70 kg/m History of Presenting Illness: The patient/caregiver reports a history of complaint with the following features: She reports that she was doing very well after physical therapy and was free of any vertigo symptoms for 5 weeks, but then had a recurrence. She was nestling into bed and felt something in her neck that triggered recurrent vertigo attack. She has returned to therapy and has again had improvement. She reports that she has occasional pain radiating along the neck to arm with tingling. Review of systems covering 10 systems is reviewed and pertinent positives and negatives are noted as above. 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 No pertinent family history. PHYSICAL EXAM: The patient was examined today 08/04/2024 with findings as follows: CONSTITUTIONAL: General Appearance: well-appearing, nontoxic, alert, no acute distress Communication: understanding at normal conversational tones, normal voicing, speech intelligible HEAD/FACE: Head: atraumatic, normocephalic, no lesions Facial Inspection: no lesions, healthy skin Facial Strength: motor strength normal, symmetric strength, symmetric movement Sinuses: no sinus tenderness Salivary Glands: no enlargements of parotid glands, no tenderness of parotid glands, no masses of parotid glands, clear salivary flow on palpation from Stensen's ducts, no duct stones of Stensen's duct, no enlargement of submandibular glands, no tenderness of submandibular glands, no masses of submandibular glands, clear salivary flow from [place]'s ducts, no stones of [place]'s ducts Temporomandibular Joint: no crepitus with motion, no tenderness on palpation, no trismus, motion symmetric EYES: Pupils: PERRLA, extra-ocular movements intact, no nystagmus, sclera white, no redness of eyes, no watering of eyes EARS: Bilateral External Ears: no pits, no tags Right External Ear: normally formed, no lesions, no mastoid tenderness Left External Ear: normally formed, no lesions, no mastoid tenderness Right External Auditory Canal: normal, healthy skin, no obstructing cerumen, no discharge Left External Auditory Canal: normal, healthy skin, no obstructing cerumen, no discharge Right Tympanic Membrane: normal landmarks, translucent, mobile to pneumatic otoscopy, no perforation Left Tympanic Membrane: normal landmarks, translucent, mobile to pneumatic otoscopy, no perforation Hearing: intact to spoken voice, intact to finger rub, Martino midline, Right Ear: Rinne AC>BC, Left Left Ear: Rinne AC>BC NOSE: Nasal Skin: no lesions, no lacerations, no scars Nasal Dorsum: symmetric with no visible or palpable deformities Nasal Tip: normal symmetric nasal tip, normal nasal valves Nasal Mucosa: normal, pink and moist Septum: not markedly deformed, midline, no exposed vessels, no bleeding, no septal granuloma Turbinates: normal size and conformation Nasopharynx: normal ORAL CAVITY/MOUTH: Lips, teeth, gums: normal lips, normal gums, dentition intact, no dental pain on palpation Oral Mucosa: normal, moist, no lesions Palate: normal hard palate, normal soft palate, symmetric palatal elevation Floor of Mouth: normal floor of mouth Tongue: normal tongue, no lesions, no edema, no masses, normal mucosa, mobile Tonsils: normal tonsils, symmetric, no lesions Posterior pharynx: normal NECK: Neck: no masses, trachea midline, normal range of motion, no cysts or pits, no tenderness to palpation Thyroid: normal thyroid, no enlargement, no tenderness, no nodules LYMPH NODES: Cervical: no palpable lymph node enlargement Axillary: no palpable lymph node enlargement RESPIRATORY: Inspection/Auscultation: good air movement, chest expands symmetrically, normal breath sounds, no wheezing, no stridor CARDIOVASCULAR SYSTEM: Auscultation: regular rate and rhythm, carotid pulse normal, no carotid thrills, no carotid bruits Observation/Palpation of Peripheral Vascular System: no varicosities, no cyanosis, no edema ABDOMEN: Inspection and Palpation: abdomen soft, non-tender, non-distended MUSCULOSKELETAL SYSTEM: Musculoskeletal System: extremity range of motion intact, strength symmetric and full upper extremities, strength symmetric and full lower extremities SKIN: General Appearance: no lesions, (more content not included)... [facility] 08-04-2024 History of Present illness Narrative [facility] [address] [facility] [place] [address] [facility] [id number] Dept: [phone] MD Ifrah Clarke 59 y.o. female Patient presents with a chief complaint of 3 mo f/u ear fullness + dizziness, hx childhood RAOM Temp 97.6 F (36.4 C) (Oral) Ht 5' 3 Wt 106.8 kg (235 lb 6.4 oz) BMI 41.70 kg/m History of Presenting Illness: The patient/caregiver reports a history of complaint with the following features: She reports that she was doing very well after physical therapy and was free of any vertigo symptoms for 5 weeks, but then had a recurrence. She was nestling into bed and felt something in her neck that triggered recurrent vertigo attack. She has returned to therapy and has again had improvement. She reports that she has occasional pain radiating along the neck to arm with tingling. Review of systems covering 10 systems is reviewed and pertinent positives and negatives are noted as above. 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 No pertinent family history. PHYSICAL EXAM: The patient was examined today 08/04/2024 with findings as follows: CONSTITUTIONAL: General Appearance: well-appearing, nontoxic, alert, no acute distress Communication: understanding at normal conversational tones, normal voicing, speech intelligible HEAD/FACE: Head: atraumatic, normocephalic, no lesions Facial Inspection: no lesions, healthy skin Facial Strength: motor strength normal, symmetric strength, symmetric movement Sinuses: no sinus tenderness Salivary Glands: no enlargements of parotid glands, no tenderness of parotid glands, no masses of parotid glands, clear salivary flow on palpation from Stensen's ducts, no duct stones of Stensen's duct, no enlargement of submandibular glands, no tenderness of submandibular glands, no masses of submandibular glands, clear salivary flow from [place]'s ducts, no stones of [place]'s ducts Temporomandibular Joint: no crepitus with motion, no tenderness on palpation, no trismus, motion symmetric EYES: Pupils: PERRLA, extra-ocular movements intact, no nystagmus, sclera white, no redness of eyes, no watering of eyes EARS: Bilateral External Ears: no pits, no tags Right External Ear: normally formed, no lesions, no mastoid tenderness Left External Ear: normally formed, no lesions, no mastoid tenderness Right External Auditory Canal: normal, healthy skin, no obstructing cerumen, no discharge Left External Auditory Canal: normal, healthy skin, no obstructing cerumen, no discharge Right Tympanic Membrane: normal landmarks, translucent, mobile to pneumatic otoscopy, no perforation Left Tympanic Membrane: normal landmarks, translucent, mobile to pneumatic otoscopy, no perforation Hearing: intact to spoken voice, intact to finger rub, Martino midline, Right Ear: Rinne AC>BC, Left Left Ear: Rinne AC>BC NOSE: Nasal Skin: no lesions, no lacerations, no scars Nasal Dorsum: symmetric with no visible or palpable deformities Nasal Tip: normal symmetric nasal tip, normal nasal valves Nasal Mucosa: normal, pink and moist Septum: not markedly deformed, midline, no exposed vessels, no bleeding, no septal granuloma Turbinates: normal size and conformation Nasopharynx: normal ORAL CAVITY/MOUTH: Lips, teeth, gums: normal lips, normal gums, dentition intact, no dental pain on palpation Oral Mucosa: normal, moist, no lesions Palate: normal hard palate, normal soft palate, symmetric palatal elevation Floor of Mouth: normal floor of mouth Tongue: normal tongue, no lesions, no edema, no masses, normal mucosa, mobile Tonsils: normal tonsils, symmetric, no lesions Posterior pharynx: normal NECK: Neck: no masses, trachea midline, normal range of motion, no cysts or pits, no tenderness to palpation Thyroid: normal thyroid, no enlargement, no tenderness, no nodules LYMPH NODES: Cervical: no palpable lymph node enlargement Axillary: no palpable lymph node enlargement RESPIRATORY: Inspection/Auscultation: good air movement, chest expands symmetrically, normal breath sounds, no wheezing, no stridor CARDIOVASCULAR SYSTEM: Auscultation: regular rate and rhythm, carotid pulse normal, no carotid thrills, no carotid bruits Observation/Palpation of Peripheral Vascular System: no varicosities, no cyanosis, no edema ABDOMEN: Inspection and Palpation: abdomen soft, non-tender, non-distended MUSCULOSKELETAL SYSTEM: Musculoskeletal System: extremity range of motion intact, strength symmetric and full upper extremities, strength symmetric and full lower extremities SKIN: General Appearance: no lesions, warm and dry, normal turgor, no bruising NEUROLOGICAL SYSTEM: Orientation: oriented to time, oriented to place, oriented to person Cranial Nerves: Cranial Nerves II-XII intact, normal facial movement, normal facial sensation to touch, normal corneal reflex, normal shoulder shrug, normal detection of odorants and normal laryngeal elevation Cerebellar: normal gait, normal finger-nose pointing and negative romberg's sign Vestibulocular: Yael-Hallpike testing negative, Fukuda step test normal, no ocular pursuit defects, and no head-shaking test induced nystagmus PSYCHIATRIC: Mood and affect: normal mood, normal affect Assessment and Plan: She reports a relapse in her vertigo. This was triggered by neck position and has improved with cervical motion exercises. I see no signs of BPPV today and her description of the triggering event is atypical for this cause. I have encouraged hor to continue with therapy. If her symptoms persist, she may benefit from evaluation with a him specialists. I have advised the patient and/or caregiver that the symptoms and exam findings are most consistent with vertigo of uncertain cause. We have discussed that the symptoms can arise from abnormalities of the balance organ of the ear, vision impairment, poor coordination of movements by the brain, weakness or reduced sensation of the extremities, or other causes related to metabolic abnormalities or circulatory problems. We have discussed that other evaluation may be needed and that ongoing follow-up is recommended. The patient and/or caregiver is to notify me of any acute change or worsening of symptoms for sooner evaluation. We have discussed that physical therapy for vestibular rehabilitation can sometimes be helpful when no other treatable cause is identified. The patient and/or caregiver is able to state an understanding of these recommendations and is agreeable to the treatment plan. I have spent greater than 20 minutes in today's visit today in discussion with the patient and caregiver, review of records, and care coordination. This excludes any procedures separately billed. 1. Cervicogenic dizziness No follow-ups on file. The patient and/or caregiver is to notify the office if no improvement or worsening of symptoms is noted prior to the scheduled follow-up for sooner evaluation. The patient and/or caregiver is able to state an understanding of these recommendations and is agreeable to the treatment plan. --Luann Joshi MD on 08/04/2024 at 9:20 AM An electronic signature was used to authenticate this note. [1] Current Outpatient Medications: biotin 1 mg tablet, Take 1,000 mcg by mouth 2 (two) times a day ., Disp: , Rfl: folic acid (FOLVITE) 1 MG tablet, Take 2 (two) tablets (2,000 mcg total) by mouth daily ., Disp: , Rfl: leucovorin (WELLCOVORIN) 15 MG tablet, Take 1 (one) tablet (15 mg total) by mouth once a week ., Disp: , Rfl: lisinopriL (PRINIVIL,ZESTRIL) 20 MG tablet, Take 1 (one) tablet (20 mg total) by mouth daily ., Disp: , Rfl: megestroL (MEGACE) 40 MG tablet, Take 1 (one) tablet (40 mg total) by mouth 2 (two) times a day ., Disp: , Rfl: methoTREXate (TREXALL) 2.5 MG tablet, Take 8 (eight) tablets (20 mg total) by mouth once a week ., Disp: , Rfl: [2] Allergies Allergen Reactions Sulfa (Sulfonamide Antibiotics) GI Intolerance [3] Social History Socioeconomic History Marital status: Tobacco Use Smoking status: Never Passive exposure: Never Smokeless tobacco: Never Vaping Use Vaping status: Never Used Substance and Sexual Activity Alcohol use: Never Review of Systems Constitutional: Negative. HENT: Positive for ear pain. Eyes: Negative. Respiratory: Negative. Cardiovascular: Negative. Gastrointestinal: Negative. Endocrine: Negative. Genitourinary: Negative. Musculoskeletal: Positive for neck pain. Skin: Negative. Allergic/Immunologic: Negative. Neurological: Positive for dizziness and headaches. Hematological: Negative. Psychiatric/Behavioral: Negative. documented in this encounter [facility] 05-12-2024 History of Present illness Narrative Images from the original note were not included. [facility] [address] [address] Name: Ifrah Vega : 1965 Date: 05/12/24 History & Purpose of Evaluation: Ifrah Vega was seen today for audiologic assessment at the request of Luann Joshi MD. She was accompanied by her Shalom Vega. Ms Vega's chief complaint was episodes of a feeling of spinning backwards. Her first episode occurred approximately four months ago after she was tilting her head back while painting a ceiling. She described a later episode in early January, at which time she experienced numbness on the right side of her body, particularly in her right arm and right side of her face. With that episode she had brief loss of consiousness. Ms. Vega has been evaluated by neurology. Please see below for other pertinent case history information as reported by Ms Vega. Otologic Symptoms R L Noise Exposure Y N Medical Y N Hearing Loss [] [] Occupational [] [x] Hypertension [x] [] Tinnitus [] [] Recreational [] [x] Diabetes [] [x] Otalgia [x] [] [] [x] Hypercholesterolemia [] [x] Otorrhea [] [] Heart Disease [] [x] Aural Fullness [x] [] Family History [] [x] Stroke [] [x] Meniere s Disease [] [] Cancer-no chemotherapy or radiation [x] [] Y N Sp./Lang. Skills Ear Surgery R L Vertigo [x] [] Appropriate [x] [] PE Tubes [] [] Dizziness [] [x] In Therapy [] [x] Mastoidectomy [] [] Imbalance [] [x] Social Acoustic Neuroma [] [] Vestibular Rehab [x] [] Depression [x] [] Tympanoplasty [] [] Hearing aids: none Other: Results: Otoscopy: Performed by Dr. Joshi prior to testing. Puretone Air & Bone Conduction Audiometry: Puretone audiometry suggested hearing within normal limits, bilaterally. Speech Audiometry: Speech recognition thresholds were in good agreement with three-frequency puretone averages. Word recognition was excellent (98% in the right ear and 94% in the left ear) when assessed at a quiet conversational loudness level using 50-word lists of recorded male voice. Immittance Audiometry: Tympanometry revealed normal ear canal volume, normal static compliance, and normal resting pressure (Jerger type A) in the left ear. Tympanometry in the right ear revealed normal ear canal volume, high static compliance, and normal resting pressure (Jerger type Ad). Ipsilateral acoustic reflexes were present in each ear, with the exception of 4000 Hz stimulus in the left ear. Contralateral acoustic reflexes were absent when stimulus was in each ear. Impression: Middle ear testing was consistent with a well-ventilated middle ear system in the left ear, and with a hypermobile tympanic membrane in the right ear. Puretone and speech audiometry were consistent with normal peripheral hearing in each ear on day of test. Recommendations: Medical follow up with Dr. Joshi. Further testing and/or re-evaluation at Dr. Joshi' discretion. Electronically Signed by: Drew King, CCC-A 05/12/24 9:09 AM Audiogram: documented in this encounter [facility] 05-12-2024 Note [facility] [address] ([address]) [facility] [address] MED[facility] OFF[facility] [address] Dept: [phone] Loc: [phone] MD Ifrah Clarke 59 y.o. female Patient presents with a chief complaint of Vertigo (ear fullness + dizziness, hx childhood RAOM) Temp 98.5 degrees F (36.9 degrees C) (Oral) Ht 5' 3 Wt 108.5 kg (239 lb 3.2 oz) BMI 42.37 kg/m History of Presenting Illness: The patient/caregiver reports a history of complaint with the following features: Onset: started 4 months ago after painting with a friend Timing: usually in the mornings now, but can occur any time of day Duration: lasted less than a minute, seems to have cleared since Davis in office 2 months ago Quality: spinning sensation, right ear fullness Location: feels like inside of head Severity: pain none, limits activities Risk factors: ear disease in childhood Alleviating factors: brief relief with Davis, but then had a severe episode with brief LOC, right arm numbness with concern for possible stroke that was ruled out in ER Aggravating factors: worse when siting and turning head to right triggers, or moving eyes too fast Associated factors: no nausea or vomiting She reports that she has had head CT and MRI that were read as normal. Review of systems covering 10 systems is reviewed and pertinent positives and negatives are noted as above. 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 No pertinent family history. PHYSICAL EXAM: The patient was examined today 05/12/2024 with findings as follows: CONSTITUTIONAL: General Appearance: well-appearing, nontoxic, alert, no acute distress Communication: understanding at normal conversational tones, normal voicing, speech intelligible HEAD/FACE: Head: atraumatic, normocephalic, no lesions Facial Inspection: no lesions, healthy skin Facial Strength: motor strength normal, symmetric strength, symmetric movement Sinuses: no sinus tenderness Salivary Glands: no enlargements of parotid glands, no tenderness of parotid glands, no masses of parotid glands, clear salivary flow on palpation from Stensen's ducts, no duct stones of Stensen's duct, no enlargement of submandibular glands, no tenderness of submandibular glands, no masses of submandibular glands, clear salivary flow from [place]'s ducts, no stones of [place]'s ducts Temporomandibular Joint: no crepitus with motion, no tenderness on palpation, no trismus, motion symmetric EYES: Pupils: PERRLA, extra-ocular movements intact, no nystagmus, sclera white, no redness of eyes, no watering of eyes EARS: Bilateral External Ears: no pits, no tags Right External Ear: normally formed, no lesions, no mastoid tenderness Left External Ear: normally formed, no lesions, no mastoid tenderness Right External Auditory Canal: normal, healthy skin, no obstructing cerumen, no discharge Left External Auditory Canal: normal, healthy skin, no obstructing cerumen, no discharge Right Tympanic Membrane: normal landmarks, translucent, mobile to pneumatic otoscopy, no perforation Left Tympanic Membrane: normal landmarks, translucent, mobile to pneumatic otoscopy, no perforation Hearing: intact to spoken voice NOSE: Nasal Skin: no lesions, no lacerations, no scars Nasal Dorsum: symmetric with no visible or palpable deformities Nasal Tip: normal symmetric nasal tip, normal nasal valves Nasal Mucosa: normal, pink and moist Septum: not markedly deformed, midline, no exposed vessels, no bleeding, no septal granuloma Turbinates: normal size and conformation Nasopharynx: normal ORAL CAVITY/MOUTH: Lips, teeth, gums: normal lips, normal gums, dentition intact, no dental pain on palpation Oral Mucosa: normal, moist, no lesions Palate: normal hard palate, normal soft palate, symmetric palatal elevation Floor of Mouth: normal floor of mouth Tongue: normal tongue, no lesions, no edema, no masses, normal mucosa, mobile Tonsils: normal tonsils, symmetric, no lesions Posterior pharynx: normal NECK: Neck: no masses, trachea midline, restricted range of motion to right turn, extension, no cysts or pits, no tenderness to palpation Thyroid: normal thyroid, no enlargement, no tenderness, no nodules LYMPH NODES: Cervical: no palpable lymph node enlargement RESPIRATORY: Inspection/Auscultation: good air movement, chest expands symmetrically, normal breath sounds, no wheezing, no stridor CARDIOVASCULAR SYSTEM: Auscultation: regular rate and rhythm, carotid pulse normal, no carotid thrills, no carotid bruits Observation/Palpation of Peripheral Vascula (more content not included)... [facility] 05-12-2024 History of Present illness Narrative [facility] [address] [facility] [address] MED[facility] OFF[facility] [address] Dept: [phone] Loc: [phone] MD Ifrah Clarke 59 y.o. female Patient presents with a chief complaint of Vertigo (ear fullness + dizziness, hx childhood RAOM) Temp 98.5 F (36.9 C) (Oral) Ht 5' 3 Wt 108.5 kg (239 lb 3.2 oz) BMI 42.37 kg/m History of Presenting Illness: The patient/caregiver reports a history of complaint with the following features: Onset: started 4 months ago after painting with a friend Timing: usually in the mornings now, but can occur any time of day Duration: lasted less than a minute, seems to have cleared since Davis in office 2 months ago Quality: spinning sensation, right ear fullness Location: feels like inside of head Severity: pain none, limits activities Risk factors: ear disease in childhood Alleviating factors: brief relief with Davis, but then had a severe episode with brief LOC, right arm numbness with concern for possible stroke that was ruled out in ER Aggravating factors: worse when siting and turning head to right triggers, or moving eyes too fast Associated factors: no nausea or vomiting She reports that she has had head CT and MRI that were read as normal. Review of systems covering 10 systems is reviewed and pertinent positives and negatives are noted as above. 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 No pertinent family history. PHYSICAL EXAM: The patient was examined today 05/12/2024 with findings as follows: CONSTITUTIONAL: General Appearance: well-appearing, nontoxic, alert, no acute distress Communication: understanding at normal conversational tones, normal voicing, speech intelligible HEAD/FACE: Head: atraumatic, normocephalic, no lesions Facial Inspection: no lesions, healthy skin Facial Strength: motor strength normal, symmetric strength, symmetric movement Sinuses: no sinus tenderness Salivary Glands: no enlargements of parotid glands, no tenderness of parotid glands, no masses of parotid glands, clear salivary flow on palpation from Stensen's ducts, no duct stones of Stensen's duct, no enlargement of submandibular glands, no tenderness of submandibular glands, no masses of submandibular glands, clear salivary flow from [place]'s ducts, no stones of Orlf's ducts Temporomandibular Joint: no crepitus with motion, no tenderness on palpation, no trismus, motion symmetric EYES: Pupils: PERRLA, extra-ocular movements intact, no nystagmus, sclera white, no redness of eyes, no watering of eyes EARS: Bilateral External Ears: no pits, no tags Right External Ear: normally formed, no lesions, no mastoid tenderness Left External Ear: normally formed, no lesions, no mastoid tenderness Right External Auditory Canal: normal, healthy skin, no obstructing cerumen, no discharge Left External Auditory Canal: normal, healthy skin, no obstructing cerumen, no discharge Right Tympanic Membrane: normal landmarks, translucent, mobile to pneumatic otoscopy, no perforation Left Tympanic Membrane: normal landmarks, translucent, mobile to pneumatic otoscopy, no perforation Hearing: intact to spoken voice NOSE: Nasal Skin: no lesions, no lacerations, no scars Nasal Dorsum: symmetric with no visible or palpable deformities Nasal Tip: normal symmetric nasal tip, normal nasal valves Nasal Mucosa: normal, pink and moist Septum: not markedly deformed, midline, no exposed vessels, no bleeding, no septal granuloma Turbinates: normal size and conformation Nasopharynx: normal ORAL CAVITY/MOUTH: Lips, teeth, gums: normal lips, normal gums, dentition intact, no dental pain on palpation Oral Mucosa: normal, moist, no lesions Palate: normal hard palate, normal soft palate, symmetric palatal elevation Floor of Mouth: normal floor of mouth Tongue: normal tongue, no lesions, no edema, no masses, normal mucosa, mobile Tonsils: normal tonsils, symmetric, no lesions Posterior pharynx: normal NECK: Neck: no masses, trachea midline, restricted range of motion to right turn, extension, no cysts or pits, no tenderness to palpation Thyroid: normal thyroid, no enlargement, no tenderness, no nodules LYMPH NODES: Cervical: no palpable lymph node enlargement RESPIRATORY: Inspection/Auscultation: good air movement, chest expands symmetrically, normal breath sounds, no wheezing, no stridor CARDIOVASCULAR SYSTEM: Auscultation: regular rate and rhythm, carotid pulse normal, no carotid thrills, no carotid bruits Observation/Palpation of Peripheral Vascular System: no varicosities, no cyanosis, no edema ABDOMEN: Inspection and Palpation: abdomen soft, non-tender, non-distended MUSCULOSKELETAL SYSTEM: Musculoskeletal System: extremity range of motion intact, strength symmetric and full upper extremities, strength symmetric and full lower extremities SKIN: General Appearance: no lesions, warm and dry, normal turgor, no bruising NEUROLOGICAL SYSTEM: Orientation: oriented to time, oriented to place, oriented to person Cranial Nerves: Cranial Nerves II-XII intact, normal facial movement, normal facial sensation to touch, normal corneal reflex, normal shoulder shrug, normal detection of odorants and normal laryngeal elevation Cerebellar: normal gait, normal finger-nose pointing and negative romberg's sign Vestibulocular: Yeal-Hallpike testing negative, Fukuda step test normal, no ocular pursuit defects, and no head-shaking test induced nystagmus PSYCHIATRIC: Mood and affect: normal mood, normal affect Assessment and Plan: She presents with brief spinning after painting a ceiling. Although some signs of BPPV are reported, the right aural fullness, right arm numbness, and restricted neck range of motion with negative brain imaging is more suggestive of cervicogenic vertigo. She has seen neurology and per those notes vestibular migraine and central vertigo were felt to be unlikely. Audiometric testing is performed today and independently reviewed and interpreted. This shows normal hearing levels bilaterally. Tympanometry shows normal compliance consistent with normally ventilated middle ear spaces. I have advised the patient and/or caregiver that the symptoms and exam findings are most consistent with vertigo of uncertain cause. We have discussed that the symptoms can arise from abnormalities of the balance organ of the ear, vision impairment, poor coordination of movements by the brain, weakness or reduced sensation of the extremities, or other causes related to metabolic abnormalities or circulatory problems. We have discussed that other evaluation may be needed and that ongoing follow-up is recommended. The patient and/or caregiver is to notify me of any acute change or worsening of symptoms for sooner evaluation. We have discussed that physical therapy for vestibular rehabilitation can sometimes be helpful when no other treatable cause is identified. The patient and/or caregiver is able to state an understanding of these recommendations and is agreeable to the treatment plan. I have spent greater than 45 minutes in today's visit today in discussion with the patient and caregiver, review of records, and care coordination. This excludes any procedures separately billed. 1. Vertigo Ambulatory Ref to [facility] (PT/OT/ST) 2. Abnormal auditory perception of right ear Ambulatory referral to Audiology 3. Vertigo, aural, right Ambulatory referral to ENT 4. Benign paroxysmal positional vertigo of right ear Ambulatory referral to ENT Return in about 1 month (around 06/11/2024). The patient and/or caregiver is to notify the office if no improvement or worsening of symptoms is noted prior to the scheduled follow-up for sooner evaluation. The patient and/or caregiver is able to state an understanding of these recommendations and is agreeable to the treatment plan. --Luann Joshi MD on 05/12/2024 at 9:45 AM An electronic signature was used to authenticate this note. [1] Current Outpatient Medications: biotin 1 mg tablet, Take 1,000 mcg by mouth 2 (two) times a day ., Disp: , Rfl: folic acid (FOLVITE) 1 MG tablet, Take 2 (two) tablets (2,000 mcg total) by mouth daily ., Disp: , Rfl: leucovorin (WELLCOVORIN) 15 MG tablet, Take 1 (one) tablet (15 mg total) by mouth once a week ., Disp: , Rfl: lisinopriL (PRINIVIL,ZESTRIL) 20 MG tablet, Take 1 (one) tablet (20 mg total) by mouth daily ., Disp: , Rfl: megestroL (MEGACE) 40 MG tablet, Take 1 (one) tablet (40 mg total) by mouth 2 (two) times a day ., Disp: , Rfl: methoTREXate (TREXALL) 2.5 MG tablet, Take 8 (eight) tablets (20 mg total) by mouth once a week ., Disp: , Rfl: [2] Allergies Allergen Reactions Sulfa (Sulfonamide Antibiotics) GI Intolerance [3] Social History Socioeconomic History Marital status: Tobacco Use Smoking status: Never Passive exposure: Never Smokeless tobacco: Never Vaping Use Vaping status: Never Used Substance and Sexual Activity Alcohol use: Never Review of Systems Constitutional: Negative. HENT: Positive for ear pain, hearing loss, sinus pressure and sinus pain. Eyes: Negative. Chronic dry eye Respiratory: Positive for cough and shortness of breath. Cardiovascular: Positive for palpitations. Gastrointestinal: Negative. Endocrine: Negative. Genitourinary: Negative. Musculoskeletal: Positive for arthralgias. Skin: Negative. Allergic/Immunologic: Positive for immunocompromised state. Neurological: Positive for dizziness and headaches. Hematological: Bruises/bleeds easily. Psychiatric/Behavioral: The patient is nervous/anxious. documented in this encounter [facility] 01-31-2024 Note New Patient Visit [facility] [address], [address], [place] [address] (office) Date of service: 01/31/2024 ID: Ifrah Vega, 58 y.o., female; : 1965 Chief Concerns and reason for consult: Ifrah Vega is a 58 y.o. woman who comes for consultation regarding Dizziness (She has her Shalom with her today. She states the Vertigo is gone at this point. She states balance issues though. ) . 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 Early December 2023. During the day patient had been helping a friend with painting the ceiling. On the same day at night, while in bed the patient had sudden onset of severe spinning sensation that lasted from a few seconds up to a minute. They appear to be worse when she was looking towards the right, hence she turned towards her left which caused improvement of symptoms. The following morning, she attempted to sit up and then had a second episode of vertigo again. On the following days, she had maybe a couple of episodes of intense vertigo typically caused by sleeping on the right due to which she avoids sleeping on her right anymore. She saw PCP approximately a week later at which point a Iron Ridge-Hallpike maneuver was performed and reportedly provoked the symptoms of vertigo. Davis's maneuver was performed which seemingly resolved the vertigo and since then she has not had any further vertigo episodes. She has however had symptoms of ground being unsteady as well as imbalance, in addition to continued symptoms of right ear fullness, and provocation discomfort with certain movements towards the right. She also complains of occasional right shoulder pain, however she has chronic shoulder pain, and thinks this might be unrelated. She underwent an MRI brain with/without contrast which did not reveal any acute intracranial abnormality. She denies any fever, hearing loss or any secretions from her right ear. She Denies any double vision, hearing loss, dysphagia, slurred speech, blurry vision, recent URI, recent diarrhea. Further, she denies any headaches, neck stiffness, jaw claudication, weight loss, joint pain, skin rashes, scalp tenderness, sudden thunderclap onset, recent trauma/head injury, confusion/change in mentation, focal weakness/numbness/tingling, autonomic symptoms. Review of Systems: Comments Neurological As above General/constitutional No fevers, weight change Skin No rash HEENT No diplopia, dysphagia, dizziness, tinnitus, hearing loss Cardiovascular No dyspnea or chest pain Respiratory No SOB Gastrointestinal No loss of bowel control Genitourinary No loss of bladder control or sexual dysfunction Musculoskeletal No myalgias Psychiatric No depression Endocrine No changes to hair or nails Hematologic No easy bruising or bleeding Past medical history: has no past medical history on file. Past surgical history: has no past surgical history on file. Social history: Family history:family history is not on file. Medications: Current Outpatient Medications: folic acid (FOLVITE) 1 MG tablet, Take 2 (two) tablets (2,000 mcg total) by mouth daily ., Disp: , Rfl: leucovorin (WELLCOVORIN) 15 MG tablet, Take 1 (one) tablet (15 mg total) by mouth once a week ., Disp: , Rfl: lisinopriL (PRINIVIL,ZESTRIL) 20 MG tablet, Take 1 (one) tablet (20 mg total) by mouth daily ., Disp: , Rfl: megestroL (MEGACE) 40 MG tablet, Take 1 (one) tablet (40 mg total) by mouth 2 (two) times a day ., Disp: , Rfl: methoTREXate (TREXALL) 2.5 MG tablet, Take 8 (eight) tablets (20 mg total) by mouth once a week ., Disp: , Rfl: Allergies: Allergies Allergen Reactions Sulfa (Sulfonamide Antibiotics) GI Intolerance Physical Examination: Vitals signs :Her weight is 106.2 kg (234 lb 3.2 oz). Her blood pressure is 137/82 and her pulse is 67. Her respiration is 16 and oxygen saturation is 98%. GENERAL EXAM: The patient is in no apparent distress. Head - normocephalic, atraumatic RESP: normal respiratory effort, no use of accessory muscles for respiration SKIN: No bruising MSK: No bony anomalies CV: Pulse regular; BP as above; . Yael-Hallpike maneuver was not attempted Neurological Examination Mental status: awake and alert; oriented to person, place, year, and month; good attention. Normal mood and affect. Normal insight into condition. Speech/language: fluent; comprehension intact; object naming intact; repetition intact Cranial nerves: CN II: Visual choi intact to confrontation. PERRL. Normal conjunctivae and lids. No spontaneous or gaze evoked nystagmus was noted. Hints test did not reveal any suggestion of central vertigo c 13 catapult operator III, IV and : extraocular movements intact. No nystagmus. C (more content not included)... [facility] 01-31-2024 History of Present illness Narrative Images from the original note were not included. New Patient Visit [facility] [address], [address], [place] [address] (office) Date of service: 01/31/2024 ID: Ifrah Vega, 58 y.o., female; : 1965 Chief Concerns and reason for consult: Ifrah Vega is a 58 y.o. woman who comes for consultation regarding Dizziness (She has her Shalom with her today. She states the Vertigo is gone at this point. She states balance issues though. ) . 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 Early December 2023. During the day patient had been helping a friend with painting the ceiling. On the same day at night, while in bed the patient had sudden onset of severe spinning sensation that lasted from a few seconds up to a minute. They appear to be worse when she was looking towards the right, hence she turned towards her left which caused improvement of symptoms. The following morning, she attempted to sit up and then had a second episode of vertigo again. On the following days, she had maybe a couple of episodes of intense vertigo typically caused by sleeping on the right due to which she avoids sleeping on her right anymore. She saw PCP approximately a week later at which point a [place] Ridge-Hallpike maneuver was performed and reportedly provoked the symptoms of vertigo. Davis's maneuver was performed which seemingly resolved the vertigo and since then she has not had any further vertigo episodes. She has however had symptoms of ground being unsteady as well as imbalance, in addition to continued symptoms of right ear fullness, and provocation discomfort with certain movements towards the right. She also complains of occasional right shoulder pain, however she has chronic shoulder pain, and thinks this might be unrelated. She underwent an MRI brain with/without contrast which did not reveal any acute intracranial abnormality. She denies any fever, hearing loss or any secretions from her right ear. She Denies any double vision, hearing loss, dysphagia, slurred speech, blurry vision, recent URI, recent diarrhea. Further, she denies any headaches, neck stiffness, jaw claudication, weight loss, joint pain, skin rashes, scalp tenderness, sudden thunderclap onset, recent trauma/head injury, confusion/change in mentation, focal weakness/numbness/tingling, autonomic symptoms. Review of Systems: Comments Neurological As above General/constitutional No fevers, weight change Skin No rash HEENT No diplopia, dysphagia, dizziness, tinnitus, hearing loss Cardiovascular No dyspnea or chest pain Respiratory No SOB Gastrointestinal No loss of bowel control Genitourinary No loss of bladder control or sexual dysfunction Musculoskeletal No myalgias Psychiatric No depression Endocrine No changes to hair or nails Hematologic No easy bruising or bleeding Past medical history: has no past medical history on file. Past surgical history: has no past surgical history on file. Social history: Family history:family history is not on file. Medications: Current Outpatient Medications: folic acid (FOLVITE) 1 MG tablet, Take 2 (two) tablets (2,000 mcg total) by mouth daily ., Disp: , Rfl: leucovorin (WELLCOVORIN) 15 MG tablet, Take 1 (one) tablet (15 mg total) by mouth once a week ., Disp: , Rfl: lisinopriL (PRINIVIL,ZESTRIL) 20 MG tablet, Take 1 (one) tablet (20 mg total) by mouth daily ., Disp: , Rfl: megestroL (MEGACE) 40 MG tablet, Take 1 (one) tablet (40 mg total) by mouth 2 (two) times a day ., Disp: , Rfl: methoTREXate (TREXALL) 2.5 MG tablet, Take 8 (eight) tablets (20 mg total) by mouth once a week ., Disp: , Rfl: Allergies: Allergies Allergen Reactions Sulfa (Sulfonamide Antibiotics) GI Intolerance Physical Examination: Vitals signs :Her weight is 106.2 kg (234 lb 3.2 oz). Her blood pressure is 137/82 and her pulse is 67. Her respiration is 16 and oxygen saturation is 98%. GENERAL EXAM: The patient is in no apparent distress. Head - normocephalic, atraumatic RESP: normal respiratory effort, no use of accessory muscles for respiration SKIN: No bruising MSK: No bony anomalies CV: Pulse regular; BP as above; . Iron Ridge-Hallpike maneuver was not attempted Neurological Examination Mental status: awake and alert; oriented to person, place, year, and month; good attention. Normal mood and affect. Normal insight into condition. Speech/language: fluent; comprehension intact; object naming intact; repetition intact Cranial nerves: CN II: Visual choi intact to confrontation. PERRL. Normal conjunctivae and lids. No spontaneous or gaze evoked nystagmus was noted. Hints test did not reveal any suggestion of central vertigo c 13 catapult operator III, IV and : extraocular movements intact. No nystagmus. CN V: Facial sensation is intact to light touch. CN VII: Facial strength normal with symmetric movement. CN VIII: Hearing is grossly intact. CN IX and X: Soft palate elevates symmetrically in the midline CN XI: Shoulder shrug and sternocleidomastoid strength (R/L) 5/5 CN XII: Tongue is midline with normal movement; no fasciculations. Motor: Normal bulk and tone. No pronator drift. SA EE EF WE WF DI HF KE KF DF PF Right 5 5 5 5 5 5 5 5 5 5 5 Left 5 5 5 5 5 5 5 5 5 5 5 Reflexes: Right Left Comments Biceps 2 2 Triceps 2 2 Brachioradialis 2 2 Patellar 2 2 Achilles 2 2 Babinski Down Down Coordination: [id number] intact bilaterally. Sensation: Comments Light touch Intact throughout Gait: Normal stride length, arm swing, and base width. Able to toe, heel, and tandem walk. Negative Romberg. Review of images/other data: MRI brain with and without contrast 01/28/2024 No acute intracranial abnormality. No findings to explain the patient's reported dizziness, aphasia, and vertigo. Assessment:/Plan: Ifrah Vega is a 58 y.o. 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 Based on Ms. Vega's presentation and history, she appears to have experienced episodes of vertigo consistent with benign paroxysmal positional vertigo (BPPV), particularly given the provocation of symptoms with head position changes and the positive response to the Davis maneuver. The persistent symptoms of imbalance and right ear fullness suggest a possible residual vestibular dysfunction or an underlying vestibular condition, despite the resolution of acute vertigo episodes. The absence of additional neurological symptoms such as hearing loss, tinnitus, or focal neurological deficits, along with a normal brain MRI, reduces the likelihood of central causes of vertigo. Her history of psoriatic arthritis and use of methotrexate do not typically contribute to vestibular symptoms, though any potential ototoxic effects of medications should be considered. The lack of systemic symptoms or recent infections also makes vestibular neuritis or labyrinthitis less likely. The overall picture also makes a vestibular migraine unlikely. On otoscopy, I do not see any significant abnormality, however considering that the patient reports some tenderness in her mastoid region and given her current symptoms of imbalance and ear fullness, further evaluation of her vestibular/middle andinner function might be warranted, potentially including vestibular function tests. in the interim, vestibular rehabilitation therapy could be beneficial to address her imbalance and improve her functional stability. Plan -Referral for vestibular therapy -Referral for ENT Diagnosis:The primary encounter diagnosis was Vertigo, aural, right. A diagnosis of Benign paroxysmal positional vertigo of right ear was also pertinent to this visit. Follow up: Return if symptoms worsen or fail to improve. Fab Garcia MD [facility]. Timed code: 67 minutes Includes preparation to see the patient (reviewing previous history, exam, test, procedure, and medications); Obtaining history from the patient/family/caregivers; performing evaluation and examination; ordering medications, tests, or procedures; referring and communicating with other healthcare professionals; counseling and education of the patient/family/caregiver; independently interpreting results (Tests, labs, imaging) and communicating results to the patient/family/caregiver; coordination of care; documenting clinical information in the electronic and other health records. documented in this encounter [facility] 05-14-2023 History of Present illness Narrative Subjective History of Present Illness Enbrel not started as cancer doctor said it would increase her risk of cancer. Presence of Pain: complains of pain/discomfort Select Pain Scale: DVPRS (Defense and Veterans Pain Rating Scale) (Adult-Cognitively Intact) DVPRS: Rest: 3- mild pain Select Pain Scale: DVPRS (Defense and Veterans Pain Rating Scale) (Adult-Cognitively Intact) Total time spent in this encounter was 35 minutes. Patient is here for 6 month Follow-up. Patient states has a lot of swelling to the point of needing to get new shoes. States that with the swelling there is pain. States that several spots on finger joints feel mushy. States that if something drags across area it also hurts. Stromal can cancer is doing all right. Joint pain is yes. Joint swelling is yes. Meloxicam stopped by PCP. Naltrexone given to her by PCP. I have been told that patient is on a high risk medication as it either treats cancer or requires blood work every 2-3 months. Lab done this past week and I do not have the results to go over with the patient and will try to track those done. I only have blood work from and uric acid was checked by PCP Objective Review of Systems Constitutional: Negative. HENT: Negative. Eyes: Negative. Respiratory: Negative. Cardiovascular: Positive for leg swelling. Gastrointestinal: Negative. Endocrine: Negative. Genitourinary: Stromal cancer Musculoskeletal: Positive for arthralgias and joint swelling. Skin: Negative. Allergic/Immunologic: Positive for immunocompromised state. Neurological: Negative. Hematological: Negative. Psychiatric/Behavioral: Negative. Vitals: There were no vitals taken for this visit. Physical Exam Vitals and nursing note reviewed. Constitutional: Appearance: Normal appearance. HENT: Head: Normocephalic and atraumatic. Right Ear: External ear normal. Left Ear: External ear normal. Nose: Nose normal. Mouth/Throat: Mouth: Mucous membranes are moist. Pharynx: Oropharynx is clear. Eyes: Extraocular Movements: Extraocular movements intact and EOM normal. Conjunctiva/sclera: Conjunctivae normal. Pupils: Pupils are equal, round, and reactive to light. Comments: glasses Cardiovascular: Rate and Rhythm: Normal rate and regular rhythm. Pulses: Radial pulses are 2+ on the right side and 2+ on the left side. Heart sounds: Normal heart sounds. Pulmonary: Effort: Pulmonary effort is normal. Breath sounds: Normal breath sounds. Abdominal: General: Bowel sounds are normal. Palpations: Abdomen is soft. Comments: obese Musculoskeletal: Right shoulder: Tenderness present. Decreased range of motion. Left shoulder: Tenderness present. Decreased range of motion. Right upper arm: Tenderness present. Left upper arm: Tenderness present. Right elbow: Normal. Left elbow: Normal. Right forearm: Normal. Left forearm: Normal. Right wrist: Decreased range of motion. Left wrist: Decreased range of motion. Right hand: Deformity, tenderness and bony tenderness present. Decreased range of motion. Left hand: Deformity, tenderness and bony tenderness present. Decreased range of motion. Cervical back: Neck supple. Right upper leg: Normal. Left upper leg: Normal. Right knee: Normal. Left knee: Normal. Right lower leg: Normal. Left lower leg: Normal. Right ankle: Decreased range of motion. Left ankle: Decreased range of motion. Left foot: Decreased range of motion. Swelling, deformity, tenderness and bony tenderness present. Comments: Dactylitis L 2 nd toe and R middle finger Skin: General: Skin is warm and dry. Neurological: Mental Status: She is alert and oriented to person, place, and time. Cranial Nerves: Cranial nerves 2-12 are intact. Sensory: Sensation is intact. Motor: Motor function is intact. Psychiatric: Mood and Affect: Mood normal. Behavior: Behavior normal. Thought Content: Thought content normal. Judgment: Judgment normal. Neurological Exam Mental Status Alert. Oriented to person, place, and time. Cranial Nerves CN II: Vision test: glasses. CN III, IV, : Extraocular movements intact bilaterally. Extraocular movements intact bilaterally. Pupils equal round and reactive to light bilaterally. Sensory Normal sensation. Assessment and Plan Encounter Diagnoses Name Primary? 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 Time was spent with the patient today in education in re: to all their medical conditions. A complete H&P&ROS was obtained and is either in this note or in the EHR. Please do not hesitate to contact me with any questions or concerns re: this patient. Past History Past medical, surgical, family, and social histories have been reviewed and updated with the patient today and are located elsewhere in the medical record. 2. Thank you for allowing me to participate in the care of your patient. With your permission I would like to F/U with your patient. 3. Glucose was elevated at 150 and patient is going to F/U with PCP 4. X-rays: patient delcines 5. BUN/CENTRIFUGAL CHILLER TECHNICIAN was at 1.1 with GFR of 59 and is now normal at 20/0.98 with GFR of 68 6. Meloxicam stopped by PCP 7. Monitor CBC/LFT/Renal func every 6-12 months as long as patient is on daily NSAID 8. Negtive Hep A&B&C serology 9. Hold Methtorexate week before, week during and, week after any surgery. Hold Methotrexate any time have an infection can restart once off of ATB and/or antiviral and free of infection. Hold Methotrexate week before, week during and, week after any live attenuated vaccine (shingles). Monitor CBC/LFT/Renal func every 2-3 months on Methotrexate. Hold Methotrexate anytime there is an open wound and can restart once wound has healed 10. Uric acid was normal at 6.2 11. Patient declines prednisone 12. ESR was elevated at 54 and is now normal at 30 13. CRP was negative at 3 and still is at 4 14. Hem/Onc F/U per Dr. Joey Maguire in [place] for Stromal cancer 15. Patient is taking Calcium magnesium and zinc and MVI 16. Rx given for OT: patient declines 17. Lab on or about 07/14/2023 and every 2 months thereafter 18. 90 day supply on medications 19. Naltrexone per PCP 20. Patient did not start Enbrel as cancer doctor told her it would cause caner 21. TB test is negative 22. Rx given for Skyrizi 23. Rx given for Methotrexate to increase to 7 pills one day a week 24. Follow-up with me in 4 months 25. Chloride is elevated at 107 documented in this encounter [facility] 11-13-2022 History of Present illness Narrative Subjective History of Present Illness Presence of Pain: denies pain/discomfort . Total time spent in this encounter was 33 minutes. Patient is here for 6 month follow up, has had increase pain in new place right hand and both feet. All questions answered for the patient and . Energy level is generally not as high as she would like it to be but actually it is pretty good. Body just does not want to do what her mind wants it to do. Cancer is fine. Joint pain is yes. Joint swelling is actually not really. She hurts between the joints. Swelling in feet. Objective Review of Systems Constitutional: Negative. HENT: Negative. Eyes: Negative. Respiratory: Negative. Cardiovascular: Negative. Gastrointestinal: Negative. Endocrine: Negative. Genitourinary: Stromal cancer Musculoskeletal: Positive for arthralgias and joint swelling. Skin: Negative. Allergic/Immunologic: Positive for immunocompromised state. Neurological: Negative. Hematological: Negative. Psychiatric/Behavioral: Negative. Vitals: Blood pressure 124/88, height 1.6 m (5' 3), weight 102.5 kg (226 lb). Physical Exam Vitals and nursing note reviewed. Constitutional: Appearance: Normal appearance. HENT: Head: Normocephalic and atraumatic. Right Ear: External ear normal. Left Ear: External ear normal. Nose: Nose normal. Mouth/Throat: Mouth: Mucous membranes are moist. Pharynx: Oropharynx is clear. Eyes: Extraocular Movements: Extraocular movements intact and EOM normal. Conjunctiva/sclera: Conjunctivae normal. Pupils: Pupils are equal, round, and reactive to light. Comments: glasses Cardiovascular: Rate and Rhythm: Normal rate and regular rhythm. Pulses: Radial pulses are 2+ on the right side and 2+ on the left side. Heart sounds: Normal heart sounds. Pulmonary: Effort: Pulmonary effort is normal. Breath sounds: Normal breath sounds. Abdominal: General: Bowel sounds are normal. Palpations: Abdomen is soft. Comments: obese Musculoskeletal: Right shoulder: Tenderness present. Decreased range of motion. Left shoulder: Tenderness present. Decreased range of motion. Right upper arm: Tenderness present. Left upper arm: Tenderness present. Right elbow: Normal. Left elbow: Normal. Right forearm: Normal. Left forearm: Normal. Right wrist: Decreased range of motion. Left wrist: Decreased range of motion. Right hand: Swelling, deformity, tenderness and bony tenderness present. Decreased range of motion. Left hand: Swelling, deformity, tenderness and bony tenderness present. Decreased range of motion. Cervical back: Neck supple. Right upper leg: Normal. Left upper leg: Normal. Right knee: Normal. Left knee: Normal. Right lower leg: Normal. Left lower leg: Normal. Right ankle: Decreased range of motion. Left ankle: Decreased range of motion. Left foot: Decreased range of motion. Swelling, deformity, tenderness and bony tenderness present. Comments: Dactylitis L 2 nd toe and R middle finger Skin: General: Skin is warm and dry. Neurological: Mental Status: She is alert and oriented to person, place, and time. Cranial Nerves: Cranial nerves 2-12 are intact. Sensory: Sensation is intact. Motor: Motor function is intact. Psychiatric: Mood and Affect: Mood normal. Behavior: Behavior normal. Thought Content: Thought content normal. Judgment: Judgment normal. Neurological Exam Mental Status Alert. Oriented to person, place, and time. Cranial Nerves CN II: Vision test: glasses. CN III, IV, : Extraocular movements intact bilaterally. Extraocular movements intact bilaterally. Pupils equal round and reactive to light bilaterally. Sensory Normal sensation. Assessment and Plan Encounter Diagnoses Name Primary? 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 Time was spent with the patient today in education in re: to all their medical conditions. A complete H&P&ROS was obtained and is either in this note or in the EHR. Please do not hesitate to contact me with any questions or concerns re: this patient. Past History Past medical, surgical, family, and social histories have been reviewed and updated with the patient today and are located elsewhere in the medical record. 2. Thank you for allowing me to participate in the care of your patient. With your permission I would like to F/U with your patient. 3. Glucose was elevated at 150 and patient is going to F/U with PCP 4. X-rays: patient delcines 5. BUN/CENTRIFUGAL CHILLER TECHNICIAN was elevated at 21/1.19 with GFR of 54 and still is at 1.1 with GFR of 59 6. Rx given to increase Methotrexate to 6 pills one day a week 7. Monitor CBC/LFT/Renal func every 6-12 months as long as patient is on daily NSAID 8. Negtive Hep A&B&C serology 9. Hold Methtorexate week before, week during and, week after any surgery. Hold Methotrexate any time have an infection can restart once off of ATB and/or antiviral and free of infection. Hold Methotrexate week before, week during and, week after any live attenuated vaccine (shingles). Monitor CBC/LFT/Renal func every 2-3 months on Methotrexate. Hold Methotrexate anytime there is an open wound and can restart once wound has healed 10. Uric acid was normal at 6.2 11. Patient declines prednisone 12. ESR was normal at 27 and is now elevated at 54: diverticulitis. 13. CRP was negative at 3 and still is at 3 14. Hem/Onc F/U per Dr. Joey Maguire in [place] for Stromal cancer 15. Patient is taking Calcium magnesium and zinc and MVI 16. Rx given for OT: patient declines 17. Lab on or bout 11/22/2022 and every 3 months thereafter 18. 90 day supply on medications 19. F/U with me in 6 months 20. Rx given for Enbrel 21. TB test today 22. Hold Enbrel 2 weeks before and 2 weeks after any surgery or live vaccine (shingles). Hold Enbrel anytime have an infection can restart once off of ATB and/or antiviral and free of infection. Hold Enbrel anytime there is an open wound can restart once wound has healed documented in this encounter [facility] 05-15-2022 History of Present illness Narrative History of Present Illness Presence of Pain: complains of pain/discomfort Pain Location: (Everywhere) Select Pain Scale: DVPRS (Defense and Veterans Pain Rating Scale) (Adult-Cognitively Intact) DVPRS: Rest: 3- mild pain DVPRS: Activity: 3- mild pain Select Pain Scale: DVPRS (Defense and Veterans Pain Rating Scale) (Adult-Cognitively Intact) Pain Frequency: constant Pain Quality: aching. Total time spent in this encounter was 33 minutes. Energy level is pretty good she would say. It does not last as long as she wished it would. Stomach is doing fine. Weakness is no. Cancer griggs every thing is all right. Joint pain is ache but not really really bad. Joint swelling is no she does not think so not more than ordinary. Joints are itchy. Patient is here today for her 3 Month F/U. Patient states she has been doing good since her last appointment. Patient is taking Meloxicam 1 pill a day. I have been told that patient is on a high risk medication as it either treats cancer or requires blood work every 2-3 months. Review of Systems Constitutional: Positive for fatigue. HENT: Negative. Eyes: Negative. Respiratory: Negative. Cardiovascular: Negative. Gastrointestinal: Negative. Endocrine: Negative. Genitourinary: Stromal cancer Musculoskeletal: Positive for arthralgias and joint swelling. Skin: Negative. Allergic/Immunologic: Positive for immunocompromised state. Neurological: Negative. Hematological: Negative. Psychiatric/Behavioral: Negative. Vitals: Blood pressure 124/88, pulse 64, temperature 97 F (36.1 C), temperature source Temporal, height 1.6 m (5' 3), weight 102.5 kg (226 lb), SpO2 97 %. Physical Exam Vitals and nursing note reviewed. Constitutional: Appearance: Normal appearance. She is obese. HENT: Head: Normocephalic and atraumatic. Right Ear: External ear normal. Left Ear: External ear normal. Nose: Nose normal. Mouth/Throat: Mouth: Mucous membranes are moist. Pharynx: Oropharynx is clear. Eyes: Extraocular Movements: Extraocular movements intact and EOM normal. Conjunctiva/sclera: Conjunctivae normal. Pupils: Pupils are equal, round, and reactive to light. Comments: glasses Cardiovascular: Rate and Rhythm: Normal rate and regular rhythm. Pulses: Radial pulses are 2+ on the right side and 2+ on the left side. Heart sounds: Normal heart sounds. Pulmonary: Effort: Pulmonary effort is normal. Breath sounds: Normal breath sounds. Abdominal: General: Bowel sounds are normal. Palpations: Abdomen is soft. Comments: obese Musculoskeletal: Right shoulder: Decreased range of motion. Left shoulder: Decreased range of motion. Right upper arm: Normal. Left upper arm: Normal. Right elbow: Normal. Left elbow: Normal. Right forearm: Normal. Left forearm: Normal. Right wrist: Decreased range of motion. Left wrist: Decreased range of motion. Right hand: Swelling and deformity present. Decreased range of motion. Left hand: Swelling and deformity present. Decreased range of motion. Cervical back: Neck supple. Right upper leg: Normal. Left upper leg: Normal. Right knee: Normal. Left knee: Normal. Right lower leg: Normal. Left lower leg: Normal. Right ankle: Decreased range of motion. Left ankle: Decreased range of motion. Skin: General: Skin is warm and dry. Neurological: Mental Status: She is alert and oriented to person, place, and time. Cranial Nerves: Cranial nerves 2-12 are intact. Sensory: Sensation is intact. Motor: Motor function is intact. Psychiatric: Mood and Affect: Mood normal. Behavior: Behavior normal. Thought Content: Thought content normal. Judgment: Judgment normal. Neurological Exam Mental Status Alert. Oriented to person, place, and time. Cranial Nerves CN II: Vision test: glasses. CN III, IV, : Extraocular movements intact bilaterally. Extraocular movements intact bilaterally. Pupils equal round and reactive to light bilaterally. Sensory Normal sensation. Assessment and Plan Encounter Diagnoses Name Primary? 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 Time was spent with the patient today in education in re: to all their medical conditions. A complete H&P&ROS was obtained and is either in this note or in the EHR. Please do not hesitate to contact me with any questions or concerns re: this patient. Past History Past medical, surgical, family, and social histories have been reviewed and updated with the patient today and are located elsewhere in the medical record. 2. Thank you for allowing me to participate in the care of your patient. With your permission I would like to F/U with your patient. 3. Glucose is elevated at 150 and patient is going to F/U with PCP 4. X-rays: patient delcines 5. 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 Rx given to decrease Meloxicam 7.5 mg 1 pill a day if needed 7. Monitor CBC/LFT/Renal func every 6-12 months as long as patient is on daily NSAID 8. Negtive Hep A&B&C serology 9. Hold Methtorexate week before, week during and, week after any surgery. Hold Methotrexate any time have an infection can restart once off of ATB and/or antiviral and free of infection. Hold Methotrexate week before, week during and, week after any live attenuated vaccine (shingles). Monitor CBC/LFT/Renal func every 2-3 months on Methotrexate. Hold Methotrexate anytime there is an open wound and can restart once wound has healed 10. Uric acid is normal at 6.2 11. Patient declines prednisone 12. ESR is normal at 27 13. CRP is negative at 3 14. Hem/Onc F/U per Dr. Joey Maguire in [place] for Stromal cancer 15. Patient is taking Calcium and potassium. 16. Rx given for OT: patient declines 17. Lab on or bout 08/01/2022 and every 3 months thereafter 18. F/U with me in 6 months 19. 90 day supply on medications 20. Rx given for Folic acid 1 mg 1 pill a day 21. Rx given for Methotrexate 3 pills one day a week documented in this encounter [facility] 07-26-2021 Hospital Discharge instructions Follow Up Care 07/26/2021 13:33:40 With:Derrick Hudson Address: [facility] [address] [place], [place] [address] [address]- [phone] Fax Business (1) When: Unknown Comments:make sure her preivous imaing from [employer] is uploaded to our system.ct a/p with iv contrast. cbc, cmp, ca125 prior to the CT scan. write her for her [facility] Evaluation + Plan note Future Appointments Appointment Date:12/14/2021 09:45:00 AM Scheduled Provider:Derrick Hudson DO Location:FT.ONCOLOGY Appointment Type:ONC Office Visit 15 (FT) Future Scheduled TestsCBC w/ Auto Diff 11/30/21CA 125 11/30/21Comprehensive Metabolic Panel 11/30/21CT Abdomen/Pelvis w/ Contrast 11/28/21 [facility] Evaluation note Diagnosis Psoriatic arthritis- Primary Psoriatic arthropathy Abnormal renal function test Nonspecific abnormal results of kidney function study Family history of psoriasis Family history of skin conditions Family history of psoriatic arthritis Family history of arthritis History of psoriatic arthritis Personal history of arthritis 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 cancer Personal history of malignant neoplasm of other parts of uterus 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 non-steroidal anti-inflammatories (NSAID) Encounter for long-term (current) use of non-steroidal anti-inflammatories Methotrexate, detention, current use Encounter for long-term (current) use of other medications Hyperglycemia Other abnormal glucose 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 osteoarthritis of both hands [facility] Psoriatic arthritis- Primary Psoriatic arthropathy Abnormal renal function test Nonspecific abnormal results of kidney function study Encounter for monitoring of etanercept therapy Family history of psoriasis Family history of skin conditions Family history of psoriatic arthritis Family history of arthritis History of psoriatic arthritis Personal history of arthritis 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 cancer Personal history of malignant neoplasm of other parts of uterus 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) Encounter for long-term (current) use of non-steroidal anti-inflammatories Methotrexate, exterminator, current use Encounter for long-term (current) use of other medications 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 osteoarthritis of both hands [facility] Diagnosis Psoriatic arthritis- Primary Psoriatic arthropathy Primary osteoarthritis of both 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 Methotrexate, exterminator, current use Encounter for long-term (current) use of other medications 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 cancer Personal history of malignant neoplasm of other parts of uterus History of psoriatic arthritis Personal history of arthritis Family history of psoriatic arthritis Family history of arthritis Family history of psoriasis Family history of skin conditions Hyperchloremia Electrolyte and fluid disorders not elsewhere classified [facility] Diagnosis Vertigo, aural, right- Primary Benign paroxysmal positional vertigo of right ear documented in this encounter [facility] note* Diagnosis Vertigo- Primary Dizziness and giddiness Abnormal auditory perception of right ear Vertigo, aural, right Benign paroxysmal positional vertigo of right ear documented in this encounter [facility] note* Diagnosis Vertigo- Primary Dizziness and giddiness documented in this encounter [facility] noteNo assessment information availableWMercy Health St[facility] Work Phone: Evaluation note* Diagnosis Cervicogenic dizziness- Primary documented in this encounter [facility] course Narrative No data available for this section [facility] No data available for this section [facility])* Consultation (Urgent) - New Request Specialty Diagnoses / Procedures Referred By Rama t Referred To Contact Family Medicine Diagnoses Psoriatic arthritis Abnormal renal function test Family history of psoriasis Family history of psoriatic arthritis History of psoriatic arthritis 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 cancer 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 non-steroidal anti-inflammatories (NSAID) 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 Work Phone: Summary Purpose Family History No Family History Records FoundNo Family History Records FoundNo Family History Records FoundNo Family History Records FoundNo Family History Records FoundNo Family History Records Found Advance Directives No Advanced Directives Records FoundNo Advanced Directives Records FoundNo Advanced Directives Records FoundNo Advanced Directives Records FoundNo Advanced Directives Records FoundNo Advanced Directives Records Found Chief Complaint and Reason for Visit Chief Complaint Admit Date PAIN- COPY PCP June 25, 2024 1:06p m Additional Source Comments INFORMATION SOURCE (unrecogn ized section and content) DATE CREATED AUTHOR 12/06/[address] [facility] DATE CREATED AUTHOR AUTHOR'S ORGANIZ ATION 05/14/2023 [facility] DATE CREATED AUTHOR AUTHOR'S ORGANIZ ATION 01/17/2024 [facility] DATE CREATED AUTHOR AUTHOR'S ORGANIZ ATION 07/02/2024 [facility] EPIC DATE CREATED AUTHOR AUTHOR'S ORGANIZ ATION 09/02/2024 [facility] DATE CREATED AUTHOR AUTHOR'S ORGANIZ ATION 09/21/2024 [facility] Reason for Visit (unrecogniz ed section and content) Reason Comments Follow-up Patient is here to y for her 3 Month F/U. Patient states she has been doing good since her last appointment. Reason Comments Joint Pain Patient is here for 6 month follow up, has had increase pain in new place right hand and both feet Reason Comments Follow-up Patient is here for 6 month Follow-up. Patient states has a lot of swelling to the point of needing to get new shoes. States that with the swelling there is pain. States that several spots on finger joints feel mushy. States that if something drags across area it also hurts. Reason Comments Dizziness She has her Shalom with her today. She states the Vertigo is gone at this point. She states balance issues though. Specialty Diagnoses / Procedures Referred By Contac t Referred To Contact Neurology Diagnoses Vertigo Shama Mccann DO [address] [place] [address] Phone: tel: fax: Referral ID Status Reason Start Date Expiration Date V isits Requested Visits Authorized [id number] Pending Review 01/15/2024 01/14/2025 1 1 Reason Comments Vertigo ear fullness + dizzi ness, hx childhood [facility] Specialty Diagnoses / Procedures Referred By Contac t Referred To Contact Otolaryngology Diagnoses Vertigo, aural, right Benign paroxysmal positional vertigo of right ear Fab Garcia MD [address] [place] [id number] Phone: tel: fax: [facility] [address] [place] [address] Medical [place] [address] Phone: tel: fax: Referral ID Status Reason Start Date Expiration Date V isits Requested Visits Authorized [id number] Closed Specialty Services Required/Maria A ent's Best Interest 01/31/2024 01/30/2025 1 1 Reason Comments 3 mo f/u ear fullness + dizziness, hx ch ildhood [facility] Care Teams (unrecognized sec tion and content) Team Status: Active Member Role Status Dates Dr. Basil Calderón PA-C Primary Care Provider Active Team Status: Inactive Member Role Status Dates Dr. Basil Calderón PA-C Primary Care Provider Active Start: June 25, 2024 End: June 25, 2024 Dr. Belén Almaraz MD Attending Provider Active Start: June 25, 2024 End: June 25, 2024 Dr. Belén Almaraz MD Referring Provider Active Start: June 25, 2024 End: June 25, 2024 Director Of Athletics Relationship Specialty Start Date End Date Basil Calderón PA-C [address] [place] [phone] PCP - General Physician Entry Level Java Developer 01/15/24 Director Of Athletics Relationship Specialty Start Date End Date Basil Calderón PA [address] [phone] PCP - General Physician Entry Level Java Developer 12/21/21 Director Of Athletics Relationship Specialty Start Date End Date Basil Calderón PA [address] [phone] PCP - General Physician Entry Level Java Developer 12/21/21 Goals (unrecognized section and content) Goals may be documented in a n alternate section FOR RECORDS PERTAINING TO PATIENTS WHO ARE OR HAVE BEEN ENROLLED IN A CHEMICAL DEPENDENCY/SUBSTANCEABUSE PROGRAM, SOME INFORMATION MAY BE OMITTED. This clinical summary was aggregated from multiple sources. Caution should be exercised in using it in the provision of clinical care. This summary normalizes information from multiple sources, and as a consequence, information in this document may materially change the coding, format and clinical context of patient data. In addition, data may be omitted in some cases. CLINICAL DECISIONS SHOULD BE BASED ON THE PRIMARY CLINICAL RECORDS. [employer] provides no warranty or guarantee of the accuracy or completeness of information in this document.
== END | disposition home or self-care (01) ==
LOC: US 09:33
PROVIDERS: PCP Physician Assistant; Referring Provider Internal Medicine Rheumatology; Visit Provider Internal Medicine Rheumatology
DX: L40.59 Other psoriatic arthropathy (principal); Z79.899 Other long term (current) drug therapy
CPT/HCPCS: 76705